=== PATIENT | male | born 2000 | race Caucasian/White ===

== ENCOUNTER 2021-07-04 09:50 | Inpatient (IN) | payer SELFPAY ==
[2021-07-04] VITALS (7 sets, daily range): BP systolic 137–168; BP diastolic 74–101; PULSE 72–93; RESP 14–19; TEMP 36.6–36.9; O2SAT 94–99; BMI 22.8; BMI 23.2
--- NOTE | 2021-07-04 11:03 | CT_ITS ---
WS: [id number] CT ABDOMEN PELVIS TECHNIQUE: Contrast-enhanced CT of the abdomen and pelvis with coronal and sagittal reformatted image s. CLINICAL INFORMATION: severe abd pain since yesterday with vomiting, possible ETOH COMPARISON: None. DLP: 1666.[address] scans at [facility] use at least one of these dose optimization techniques: automated e xposure control; mA and/or kV adjustment per patient size (includes targeted exams where dose is matc hed to clinical indication); or iterative reconstruction. FINDINGS: Hepatomegaly with diffuse fatty infiltration the liver. Normal spleen. Normal portal vein and splenic vein. Normal gallbladder. Lung bases are well aerated. Mild induration and inflammatory stranding ab out the head of the pancreas suspicious for pancreatitis. Small amount of induration about the body a nd tail of the pancreas with trace peripancreatic fluid. Splenic vein is patent. Correlation with pancreatic function studies. Normal pancreatic parenchymal enhancement. No drainable fluid collections. A few reactive lymph nodes in the ariadna hepatis and central mesentery. Adrenal gl ands are normal. Normal renal parenchymal enhancement. No hydronephrosis. Normal caliber abdominal ao rta. No evidence of high-grade small or large bowel obstruction. Mild constipation right colon. Normal adrian iber abdominal aorta. No abdominal lymphadenopathy. No free fluid in the pelvis. Fat-containing umbil ical hernia. Lung bases are well aerated. Grade 1 anterolisthesis L5 on S1 with bilateral pars defect s. CT/CT abdomen pelvis w con* [id number] IMPRESSION: 1. Hepatomegaly with diffuse fatty infiltration. 2. Mild edema within the head of the pancreas with subtle surrounding inflamma tory changes and trace peripancreatic fluid consistent with acute pancreatitis. Mild thickening of the adjacent duodenum. Recommend correlation with pancreati c enzymes 3. No drainable fluid collections. 4. Mild constipation right colon. 5. A few prominent lymph nodes along the ariadna hepatis and central mesentery l ikely reactive. 6. Grade 1 anterolisthesis L5 on S1 with bilateral pars defects. Notified JOHN Bean at 07/04/2021 11:52 AM.
--- NOTE | 2021-07-04 11:04 | W.ED.ABDPA2 ---
Documented by User: JOHN Bean 07/04/21 11:59 HPI - Abdominal Pain General: Chief Complaint: Abdominal Pain Stated Complaint: ABD PAINS N/V Time Seen by Provider: 07/04/21 10:57 History of Present Illness: HPI narrative: Complains about severe abdominal pain with nausea and vomiting since yesterday. Patient has been able to eat some. Patient also states he drinks vodka on a regular basis. Has no history of similar problems. Denies any fever chills. MD elicited complaint: abdominal pain Pertinent past history: other (EtOH abuse) Onset (ago): hour(s) Pain Consistency: constant Location: LUQ and RUQ Severity: severe Quality: stabbing and aching Relieving factors: nothing Associated Symptoms: Reports no associated symptoms, nausea and vomiting; Denies chills and fever(s) Review of Systems Const: Denies: fever(s), chills or body aches Eyes: Denies: change in vision or blurry vision ENMT: Denies: throat pain or nasal congestion Card: Denies: chest pain or dyspnea on exertion Resp: Denies: dyspnea, productive cough or non-productive cough GI: Reports: abdominal pain, nausea and vomiting : Denies: difficulty urinating Musc: Denies: extremity pain Skin/Breast: Denies: rash Neuro: Denies: headache(s) Psych: Denies: anxiety or depression Rajiv/Lymph: Denies: easy bruising Physical Exam Const: COMMON NORMALS: no acute distress, average body habitus and patient oriented x3 HENMT: COMMON NORMALS: normocephalic HEAD & SCALP: normal to inspection and normocephalic FACE & SINUS: normal facial exam Eye: COMMON NORMALS: conjunctivae normal GENERAL EYE: appearance normal, both eyes and all related structures CONJUNCTIVA: Yes conjunctivae normal Neck/C-Spine: COMMON NORMALS: no JVD Chest: COMMONS NORMALS: normal inspection of the chest Resp: COMMON NORMALS: normal respiratory effort and clear to auscultation bilaterally AUSCULTATION: clear to auscultation bilaterally Cardio: COMMON NORMALS: no JVD, regular rate and regular rhythm RATE: regular rate RHYTHM: regular rhythm GI: COMMON NORMALS: Normal to inspection, nondistended, normoactive bowel sounds present AUSCULTATION: Yes Hypoactive bowel sounds present PALPATION: Yes Tenderness to palpation present (GI) Details: LUQ and RUQ Extremity: COMMON NORMALS: normal to inspection and full ROM Neuro: COMMON NORMALS: patient oriented x3 Course Vital Signs: Vital signs: Vital Signs Temperature 98.2 F 07/04/21 10:32 Pulse Rate 89 07/04/21 10:32 Respiratory Rate 18 07/04/21 10:32 Blood Pressure 137/88 07/04/21 10:32 Pulse Oximetry 94 07/04/21 10:32 MDM - Abdominal Pain MDM Narrative: Medical decision making narrative: Patient presents today with abdominal pain and nausea and vomiting since yesterday. Patient relates history of drinking vodka pretty much on a daily basis along with his also who drinks daily. Patient states his abdominal pain is severe. CT report from radiologist reports pancreatitis and enlarged liver. Labs supportive of pancreatitis diagnosis. Patient was given morphine and Zofran and fluids to help with discomfort. Report given to Dr. Guzman and care transferred over to him. Lab Data: Labs: Lab Results 07/04/21 07/04/21 11:20 11:20 WBC 17.5 10^3/uL H 10 ^3/uL (4.0-10.0) RBC 4.66 10^6/uL 10^6 /uL (4.1-5.3) Hgb 14.9 g/dL g/dL (11.7-16.6) Hct 44.3 % % (42.0-52.0) MCV 95.1 fl H fl (80-94) MCH 32.0 pg pg (28.0-34.0) MCHC 33.6 g/dL g/dL (30.0-36.0) RDW 13.2 % % (12.1-15.1) Plt Count 229 10^3/cmm 10^3 /cmm (130-400) MPV 10.2 fL fL (7.4-10.4) Neut % (Auto) 86.2 % % Lymph % (Auto) 7.1 % % [place] % (Auto) 6.0 % % Eos % (Auto) 0.1 % % Baso % (Auto) 0.3 % % Neut # (Auto) 15.04 10^3/uL H 1 0^3/uL (1.8-7.7) Lymph # (Auto) 1.2 10^3/uL 10^3/ uL (0.8-4.8) [place] # (Auto) 1.1 10^3/uL H 10^ 3/uL (0.2-0.9) Eos # (Auto) 0.0 10^3/uL 10^3/ uL (0.0-0.8) Baso # (Auto) 0.1 10^3/uL 10^3/ uL (0.0-0.1) Nucleated RBC % (a uto) 0 % % Nucleated RBCs # 0.0 /100WBC /100W BC Sodium 138 mmol/L mmol/L (136-145) Potassium 3.7 mmol/L mmol/L (3.5-5.1) Chloride 96 mmol/L L mmol/ L (98-107) Carbon Dioxide 26 mmol/L mmol/L (22-29) Anion Gap 19.7 H (5-19) BUN 8 mg/dL mg/dL (6-20) Creatinine 0.7 mg/dL mg/dL (0.7-1.2) GFR Calculation 141.0 mL/min H mL /min (90-130) Glucose 143 mg/dL H mg/dL (65-115) Calculated Osmolal ity 287 mOsm/kg mOsm/ kg (285-295) Calcium 10.1 mg/dL mg/dL (8.5-10.5) Total Bilirubin 0.7 mg/dL mg/dL (0.15-1.2) AST 127 U/L H U/L (0-40) ALT 102 U/L H U/L (0-41) Alkaline Phosphata se 91 IU/L IU/L (40-130) Total Protein 7.9 g/dL g/dL (6.6-8.7) Albumin 5.2 g/dL g/dL (3.5-5.2) Globulin 2.7 g/dL g/dL (1.3-4.6) Lipase 557 U/L H U/L (13-60) Ethyl Alcohol < 10 mg/dL mg/dL (0-10) Discharge Plan Discharge Patient Disposition: Admitted As Inpatient Clinical Impression: Pancreatitis Qualifiers: Chronicity: acute Pancreatitis type: alcohol induced Acute pancreatitis complication: no infection or necrosis Qualified Code(s): K85.20 - Alcohol induced acute pancreatitis without necrosis or infection Condition: Stable Coding Level of Care Code ED Assisted Living Coordinator for Chg Fwd Exam Comprehensive Documented by User: Luiz Guzman MD 07/04/21 12:46 HPI - Abdominal Pain General: Chief Complaint: Abdominal Pain Stated Complaint: ABD PAINS N/V Time Seen by Provider: 07/04/21 10:57 Course Vital Signs: Vital signs: Vital Signs Temperature 98.2 F 07/04/21 10:32 Pulse Rate 89 07/04/21 10:32 Respiratory Rate 18 07/04/21 10:32 Blood Pressure 137/88 07/04/21 10:32 Pulse Oximetry 94 07/04/21 10:32 MDM - Abdominal Pain MDM Narrative: Medical decision making narrative: Addendum: Discussed case with midlevel provider and agree with management. Patient will be admitted to medical service. Remainder of lab work and imaging reviewed. Discussed with hospitalist and they agreed patient would benefit from admission. Patient admitted in stable condition. Further evaluation management per hospitalist team. Lab Data: Labs: Lab Results 07/04/21 07/04/21 11:20 11:20 WBC 17.5 10^3/uL H 10 ^3/uL (4.0-10.0) RBC 4.66 10^6/uL 10^6 /uL (4.1-5.3) Hgb 14.9 g/dL g/dL (11.7-16.6) Hct 44.3 % % (42.0-52.0) MCV 95.1 fl H fl (80-94) MCH 32.0 pg pg (28.0-34.0) MCHC 33.6 g/dL g/dL (30.0-36.0) RDW 13.2 % % (12.1-15.1) Plt Count 229 10^3/cmm 10^3 /cmm (130-400) MPV 10.2 fL fL (7.4-10.4) Neut % (Auto) 86.2 % % Lymph % (Auto) 7.1 % % [place] % (Auto) 6.0 % % Eos % (Auto) 0.1 % % Baso % (Auto) 0.3 % % Neut # (Auto) 15.04 10^3/uL H 1 0^3/uL (1.8-7.7) Lymph # (Auto) 1.2 10^3/uL 10^3/ uL (0.8-4.8) [place] # (Auto) 1.1 10^3/uL H 10^ 3/uL (0.2-0.9) Eos # (Auto) 0.0 10^3/uL 10^3/ uL (0.0-0.8) Baso # (Auto) 0.1 10^3/uL 10^3/ uL (0.0-0.1) Nucleated RBC % (a uto) 0 % % Nucleated RBCs # 0.0 /100WBC /100W BC Sodium 138 mmol/L mmol/L (136-145) Potassium 3.7 mmol/L mmol/L (3.5-5.1) Chloride 96 mmol/L L mmol/ L (98-107) Carbon Dioxide 26 mmol/L mmol/L (22-29) Anion Gap 19.7 H (5-19) BUN 8 mg/dL mg/dL (6-20) Creatinine 0.7 mg/dL mg/dL (0.7-1.2) GFR Calculation 141.0 mL/min H mL /min (90-130) Glucose 143 mg/dL H mg/dL (65-115) Calculated Osmolal ity 287 mOsm/kg mOsm/ kg (285-295) Calcium 10.1 mg/dL mg/dL (8.5-10.5) Total Bilirubin 0.7 mg/dL mg/dL (0.15-1.2) AST 127 U/L H U/L (0-40) ALT 102 U/L H U/L (0-41) Alkaline Phosphata se 91 IU/L IU/L (40-130) Total Protein 7.9 g/dL g/dL (6.6-8.7) Albumin 5.2 g/dL g/dL (3.5-5.2) Globulin 2.7 g/dL g/dL (1.3-4.6) Lipase 557 U/L H U/L (13-60) Ethyl Alcohol < 10 mg/dL mg/dL (0-10) Discharge Plan Discharge Patient Disposition: Admitted As Inpatient Clinical Impression: Pancreatitis Qualifiers: Chronicity: acute Pancreatitis type: alcohol induced Acute pancreatitis complication: no infection or necrosis Qualified Code(s): K85.20 - Alcohol induced acute pancreatitis without necrosis or infection Condition: Stable Coding Level of Care Code ED Assisted Living Coordinator for g Fwd Exam Comprehensive
[2021-07-04] MEDS: ondansetron 2 mg/ML SDV 2 mL 4 MG IVP (11:22)
[2021-07-04] MEDS: sodium chloride 0.9% 1,000 ML 999 ML IV (11:22)
[2021-07-04] MEDS: iohexol 300 mg/mL 100 mL Btl IV (11:28)
[2021-07-04 11:50] LABS: Basophils # 0.1 10^3/uL (0.0-0.1); Basophils % 0.3 %; Eosinophils % 0.1 %; Hematocrit 44.3 % (42.0-52.0); Hemoglobin 14.9 g/dL (11.7-16.6); Lymphocytes # 1.2 10^3/uL (0.8-4.8); Lymphocytes % 7.1 %; Mean Corpuscular HGB Conc 33.6 g/dL (30.0-36.0); Mean Corpuscular Volume 95.1 fl (80-94); Mean Platelet Volume 10.2 fL (7.4-10.4); Monocytes # 1.1 10^3/uL (0.2-0.9); Neutrophils # 15.04 10^3/uL (1.8-7.7); Neutrophils % 86.2 %; Nucleated Red Blood Cells % 0 %; Platelet Count 229 10^3/cmm (130-400); Red Blood Count 4.66 10^6/uL (4.1-5.3); Red Cell Distribution Width 13.2 % (12.1-15.1); White Blood Count 17.5 10^3/uL (4.0-10.0)
[2021-07-04 11:57] LABS: Alanine Aminotransferase 102 U/L (0-41); Albumin Level 5.2 g/dL (3.5-5.2); Alkaline Phosphatase 91 IU/L (40-130); Anion Gap 19.7 (5-19); Aspartate Amino Transferase 127 U/L (0-40); Blood Urea Nitrogen 8 mg/dL (6-20); Calcium 10.1 mg/dL (8.5-10.5); Carbon Dioxide 26 mmol/L (22-29); Chloride 96 mmol/L (98-107); Globulin 2.7 g/dL (1.3-4.6); Glucose 143 mg/dL (65-115); Osmolality Calculated 287 mOsm/kg (285-295); Potassium 3.7 mmol/L (3.5-5.1); Sodium 138 mmol/L (136-145); Total Bilirubin 0.7 mg/dL (0.15-1.2); Total Protein 7.9 g/dL (6.6-8.7)
[2021-07-04 12:07] LABS: Alcohol Level < 10 mg/dL (0-10)
[2021-07-04] MEDS: morphine 4 mg/mL SDV 1 mL IVP ×2 (12:13→14:10)
[2021-07-04 12:14] LABS: Lipase 557 U/L (13-60)
[2021-07-04 13:37] LABS: Add Urine Microscopic? YES; Bilirubin Urine Neg (Negative); Blood Urine Neg (Negative); Glucose Urine UA Norm (Normal); Ketones Urine 1+ (Negative); Leukocyte Esterase Urine Negative (Negative); Nitrate Urine Negative (Negative); Protein Urine Trace (Negative); Specific Gravity, Urine 1.005 (1.005-1.030); Urine Appearance Clear (CLEAR); Urine Color Yellow (Yellow); Urobilinogen Urine Norm (Negative); pH Urine 6.5 (5-7)
[2021-07-04 13:40] LABS: RBC Urine 0-4 /hpf (0-2)
[2021-07-04 13:41] LABS: Add Urine Culture? No; Bacteria Urine TRACE /hpf; Mucus Urine 1+ /hpf; Squamous Epithelial Cell Urine 0-4 /hpf (0-5); WBC Urine 0-4 /hpf (0-5)
[2021-07-04] MEDS: sodium chloride 0.9% 1,000 ML 125 ML IV (16:58)
[2021-07-04] MEDS: morphine 4 mg/mL SDV 1 mL 2 MG IVP ×2 (17:01→21:05)
--- NOTE | 2021-07-04 19:05 | PM.HP ---
Providers/Chief Complaint Admitting Physician: Robert Mcconnell Chief Complaint: ABD PAINS N/V History of Present Illness Ian Montana is a 20 year old male With a past medical history of alcohol abuse who presented to the hospital with mid epigastric pain, nausea and vomiting. Symptoms started 3 days prior. No prior history of pancreatitis. upon arrival to emergency room patient was noted to have elevated lipase and CT abdomen pelvis showing evidence of acute pancreatitis. Patient was started on IV fluids and admitted to the hospital. Review of Systems General: Reports: 10 or more systems reviewed and unremarkable except in HPI and below Medications/Allergies Home Medications Medication Instructions Recorded Confirmed Last Taken Type acetaminophen [Tylenol Ex Str 500 mg PO Q4H PRN 07/04/21 07/04/21 Unknown History Rapid Release] esomeprazole magnesium [Nexium] 20 mg PO DAILY PRN 07/04/21 07/04/21 Unknown History Allergies Allergy/AdvReac Type Severity Reaction Status Date / Time No Known Allergies Allergy Unverified 07/04/21 11:49 PFSH Acute PFSH: Social History (Updated 07/04/21 @ 19:07 by Robert Mcconnell MD) Smoking and tobacco status: current every day smoker Alcohol intake: current Substance/Drug Use: never Vitals/I&O/Wt Last Vital Signs Temp 98.4 F 07/04/21 16:03 Pulse 74 07/04/21 16:03 Resp 14 07/04/21 17:01 BP 146/89 07/04/21 16:03 Pulse Ox 99 07/04/21 17:01 07/04/21 07/04/21 07/04/21 06:59 14:59 22:59 Intake Total 1000 / 1000 Balance 1000 / 1000 Weight last 48 hrs Weight 82.1 kg Weight 80.739 kg Physical Exam Narrative: EXAM NARRATIVE: General-Alert awake, mild distress HEENT grossly unremarkable CVS - normal sinus rhythm Chest- nonlabored respiration Abdomen- midepigastric tenderness to palpation Extremities-no edema Data : 07/04/21 11:20 07/04/21 11:20 A&P Assessment and plan (1) Acute alcoholic pancreatitis: NPO IV fluids Pain control Repeat CMP /lipase in a.m. Status: Acute (2) Alcoholism: Alcohol withdrawal protocol Status: Acute Attestations Medical Necessity Statement*: may require over 2 midnight stay in hospital for evaluation treatment of acute pancreatitis Time Spent in Patient Care: Greater than 35 minutes (>than 50% of time spent in counselling and/or direct pt care on unit). Coding Level of Care Code Acute On Site Construction Superintendent for Kellen Rousseau Diagnoses Acute alcoholic pancreatitis K85.20 Alcoholism F10.20
[2021-07-05] VITALS (10 sets, daily range): BP systolic 150–174; BP diastolic 84–98; PULSE 72–107; RESP 16–20; TEMP 36.8–37.8; O2SAT 96–98
[2021-07-05] MEDS: sodium chloride 0.9% 1,000 ML 125 ML IV ×3 (01:27→18:26)
[2021-07-05] MEDS: morphine 4 mg/mL SDV 1 mL 2 MG IVP ×4 (01:40→21:49)
[2021-07-05] MEDS: ondansetron 2 mg/ML SDV 2 mL 4 MG IVP ×2 (01:40→21:46)
[2021-07-05 06:18] LABS: Basophils % 0.2 %; Hematocrit 43.1 % (42.0-52.0); Hemoglobin 14.5 g/dL (11.7-16.6); Lymphocytes # 0.9 10^3/uL (0.8-4.8); Lymphocytes % 4.3 %; Mean Corpuscular HGB Conc 33.6 g/dL (30.0-36.0); Mean Corpuscular Hemoglobin 31.9 pg (28.0-34.0); Mean Corpuscular Volume 94.9 fl (80-94); Mean Platelet Volume 10.4 fL (7.4-10.4); Monocytes # 1.2 10^3/uL (0.2-0.9); Monocytes % 6.1 %; Neutrophils # 17.64 10^3/uL (1.8-7.7); Nucleated Red Blood Cells % 0 %; Platelet Count 207 10^3/cmm (130-400); Red Blood Count 4.54 10^6/uL (4.1-5.3); Red Cell Distribution Width 13.2 % (12.1-15.1); White Blood Count 19.8 10^3/uL (4.0-10.0)
[2021-07-05 06:33] LABS: Alanine Aminotransferase 58 U/L (0-41); Albumin Level 4.2 g/dL (3.5-5.2); Alkaline Phosphatase 68 IU/L (40-130); Anion Gap 16.8 (5-19); Aspartate Amino Transferase 44 U/L (0-40); Blood Urea Nitrogen 7 mg/dL (6-20); Calcium 9.2 mg/dL (8.5-10.5); Carbon Dioxide 24 mmol/L (22-29); Chloride 100 mmol/L (98-107); Globulin 2.4 g/dL (1.3-4.6); Glomerular Filtration Rate 207.9 mL/min (90-130); Glucose 130 mg/dL (65-115); Magnesium 1.3 mg/dL (1.7-2.3); Osmolality Calculated 284 mOsm/kg (285-295); Potassium 3.8 mmol/L (3.5-5.1); Sodium 137 mmol/L (136-145); Total Bilirubin 0.6 mg/dL (0.15-1.2); Total Protein 6.6 g/dL (6.6-8.7)
[2021-07-05 07:09] LABS: Lipase 1279 U/L (13-60)
[2021-07-05] MEDS: thiamine 100 mg Tablet PO (09:23)
[2021-07-05] MEDS: multivitamin therapeutic Tablet 1 TAB PO (09:23)
[2021-07-05] MEDS: folic acid 1 mg Tablet PO (09:23)
[2021-07-05] MEDS: pantoprazole 40 mg SDV IVP (09:24)
--- NOTE | 2021-07-05 10:32 | PC.CHAP ---
Pastoral Care Encounter/Spiritual Assessment Type of Contact [x] Declined photographic double visit [] Patient/Family/Request visit [] Outpatient visit [] Follow-up visit [] Physician referral [] Code/Alert [] Routine visit [] Staff referral [] Actively dying [] Patient sleeping [] Family support [] [] Out of room [] Palliative care [] [] Receiving care in room [] Pre-surgical visit [] Trauma [] Long length of stay [] ICU visit [] Other: Relational/Emotional Strength [] Patient feels connected with others/family/visitors/staff [] Distress [] Loneliness/isolation [] Abandonment Spirituality of Patient [] Person of Radha [] Attends Shinto of their Radha [] Believes in Prayer [] Reads Bible or Alevism materials [] There are Spiritual issues to be addressed [employer] Sweeper Operator Interventions [] Prayer [] Active listening [] Non-anxious presence [] Spiritual/emotional support [] Crisis/trauma care [] Spiritual counseling [] Bereavement support [] Provided bereavement packet [] Provided Bible/devotional materials [] Provided toy/stuffed animal, coloring book to patient or family member [] Provided Communion [] Anointing/[place] [] Salvation [] Completed spiritual assessment [] Other: Impact on Illness or Injury [] Angry [] Fearful [] Anxious [] Often cries [] Exhaustion [] Unable to work [] Unable to attend religious [] Unable to walk/stand [] Unable to read [] Unable to drive [] Unable to eat/drink [] Unable to sleep [] Unable to be with family [] Patient intubated [] Other: Summary Declined photographic double visit Time spent with patient 5 mins
--- NOTE | 2021-07-05 14:42 | P.PN_ITS ---
Subjective Subjective: Interval history: 20 year old male With a past medical history of alcohol abuse who presented to the hospital with mid epigastric pain, nausea and vomiting. Symptoms started 3 days prior. No prior history of pancreatitis. upon arrival to emergency room patient was noted to have elevated lipase and CT abdomen pelvis showing evidence of acute pancreatitis. Patient was started on IV fluids and admitted to the hospital. Subjective: Temp of 100.0, isolated. No emesis today. Noted nausea. Has been using less IV narcotics. Medications: Reviewed: Yes Vitals/I&O/Wt Last Vital Signs Temp 98.3 F 07/05/21 20:00 Pulse 95 07/05/21 20:00 Resp 18 07/05/21 21:49 BP 154/93 07/05/21 20:00 Pulse Ox 96 07/05/21 20:00 07/05/21 07/05/21 07/05/21 06:59 14:59 22:59 Intake Total 999 991.667 / 939.829 7238 / 1990.667 Balance 999 991.667 / 506.018 3223 / 1990.667 Weight last 48 hrs Weight 82.1 kg Weight 80.739 kg Data : 07/05/21 05:50 07/05/21 05:50 A&P Assessment and plan (1) Acute alcoholic pancreatitis: Will start CLD- if pain or recurrnace of emesis will make NPO IVF Pain control CT abd/pelvis -Mild edema within the head of the pancreas with subtle surrounding inflammatory changes and trace peripancreatic fluid consistent with acute pancreatitis. Mild thickening of the adjacent duodenum. Low grade temp - if persistent will start Primixin. Leukocytosis increasing - possible due to alcholic hepatitis vs infectious process Repeat labs in AM Procalcitonin in am Status: Acute (2) Alcoholism: CIWA protocol Ativan PRN Status: Acute Attestations Medical Necessity Statement*: Require further hospitalization for management of pancreatitis Time Spent in Patient Care: Greater than 35 minutes (>than 50% of time spent in counselling and/or direct pt care on unit) . Coding Level of Care Code Acute Pet Training Instructor for Kellen Rousseau Diagnoses Acute alcoholic pancreatitis K85.20 Alcoholism F10.20
--- NOTE | 2021-07-05 21:13 | PC.NURSE ---
i reported high reps 20 to nurse
[2021-07-05] MEDS: magnesium sulfate premix 2 GM/50 ML PIGGYBACK IV (22:51)
[2021-07-06] VITALS (11 sets, daily range): BP systolic 134–148; BP diastolic 84–90; PULSE 90–108; RESP 16–18; TEMP 36.7–38.1; O2SAT 90–95
[2021-07-06] MEDS: sodium chloride 0.9% 1,000 ML 125 ML IV ×3 (01:36→18:22)
[2021-07-06] MEDS: morphine 4 mg/mL SDV 1 mL 2 MG IVP ×5 (01:53→20:31)
[2021-07-06 06:24] LABS: Basophils # 0.1 10^3/uL (0.0-0.1); Basophils % 0.3 %; Eosinophils % 0.1 %; Hematocrit 41.2 % (42.0-52.0); Hemoglobin 13.9 g/dL (11.7-16.6); Lymphocytes # 1.1 10^3/uL (0.8-4.8); Lymphocytes % 5.9 %; Mean Corpuscular HGB Conc 33.7 g/dL (30.0-36.0); Mean Corpuscular Hemoglobin 32.9 pg (28.0-34.0); Mean Corpuscular Volume 97.6 fl (80-94); Monocytes % 5.3 %; Neutrophils # 16.33 10^3/uL (1.8-7.7); Nucleated Red Blood Cells % 0 %; Platelet Count 158 10^3/cmm (130-400); Red Blood Count 4.22 10^6/uL (4.1-5.3); Red Cell Distribution Width 13.5 % (12.1-15.1); White Blood Count 18.5 10^3/uL (4.0-10.0)
[2021-07-06 06:46] LABS: Alanine Aminotransferase 32 U/L (0-41); Albumin Level 3.5 g/dL (3.5-5.2); Alkaline Phosphatase 60 IU/L (40-130); Aspartate Amino Transferase 24 U/L (0-40); Blood Urea Nitrogen 6 mg/dL (6-20); Calcium 8.6 mg/dL (8.5-10.5); Carbon Dioxide 25 mmol/L (22-29); Globulin 2.9 g/dL (1.3-4.6); Glomerular Filtration Rate 207.9 mL/min (90-130); Glucose 97 mg/dL (65-115); Magnesium 2.1 mg/dL (1.7-2.3); Total Bilirubin 0.5 mg/dL (0.15-1.2); Total Protein 6.4 g/dL (6.6-8.7)
[2021-07-06 06:50] LABS: Procalcitonin 0.65 ng/mL (0-0.5)
[2021-07-06 07:05] LABS: Anion Gap 14.8 (5-19); Chloride 99 mmol/L (98-107); Lipase 475 U/L (13-60); Osmolality Calculated 278 mOsm/kg (285-295); Potassium 3.8 mmol/L (3.5-5.1); Sodium 135 mmol/L (136-145)
[2021-07-06] MEDS: pantoprazole 40 mg SDV IVP (08:43)
[2021-07-06] MEDS: multivitamin therapeutic Tablet 1 TAB PO (08:43)
[2021-07-06] MEDS: folic acid 1 mg Tablet PO (08:43)
[2021-07-06] MEDS: thiamine 100 mg Tablet PO (08:43)
--- NOTE | 2021-07-06 12:11 | P.PN_ITS ---
Subjective Subjective: Interval history: Patient was seen and examined this morning, continues to complain of generalized abdominal pain, no vomiting, wants to try clear liquid diet. Medications: Reviewed: Yes Vitals/I&O/Wt Last Vital Signs Temp 99.9 F H 07/06/21 11:15 Pulse 108 H 07/06/21 11:15 Resp 16 07/06/21 11:15 BP 140/90 07/06/21 11:15 Pulse Ox 90 07/06/21 11:15 07/05/21 07/06/21 07/06/21 22:59 06:59 14:59 Intake Total 1000 1990.667 970 / 2961.667 1000 / 1000 Output Total 460 / 460 Balance 999.667 510 / 2501.667 1000 / 1000 Weight last 48 hrs Weight 82.1 kg Physical Exam Const: COMMON NORMALS: patient oriented x3 HENMT: COMMON NORMALS: normocephalic and atraumatic HEAD & SCALP: normocephalic and atraumatic Resp: COMMON NORMALS: clear to auscultation bilaterally AUSCULTATION: clear to auscultation bilaterally Cardio: COMMON NORMALS: regular rate, regular rhythm, S1 normal heart sound present, S2 normal heart sound present, No gallops present (Cardio), No murmurs present (Cardio), No rub (Cardio) and Peripheral pulses 2+ throughout RATE: regular rate RHYTHM: regular rhythm HEART SOUNDS: S1 normal heart sound present and S2 normal heart sound present PERIPHERAL PULSES: Peripheral pulses 2+ throughout GI: AUSCULTATION: Yes normoactive bowel sounds RECTAL EXAM: Yes deferred OTHER: Generalized abdominal tenderness present, no guarding no rigidity no rebound tenderness. Extremity: COMMON NORMALS: no clubbing, cyanosis or edema and no pedal edema Neuro: COMMON NORMALS: patient oriented x3 Data : 07/06/21 05:30 07/06/21 05:30 A&P Assessment and plan (1) Acute alcoholic pancreatitis: Tolerated CLD- Currently on G/I Soft diet IVF Pain control CT abd/pelvis -Mild edema within the head of the pancreas with subtle surrounding inflammatory changes and trace peripancreatic fluid consistent with acute pancreatitis. Mild thickening of the adjacent duodenum. Has been afebrile in last 24 hrs Leukocytosis is slowly improving Procalcitonin:0.65 Status: Acute (2) Alcoholism: CIWA protocol Ativan PRN Status: Acute Attestations Medical Necessity Statement*: In hospital for management of acute pancreatitis Coding Level of Care Code Acute Bookstore Clerk for Kellen Rousseau Diagnoses Acute alcoholic pancreatitis K85.20 Alcoholism F10.20
--- NOTE | 2021-07-06 19:03 | PC.NURSE ---
Report to Elen VAUGHN at this time.
--- NOTE | 2021-07-06 20:02 | PC.NURSE ---
i reported high pulse 108 and high temp 100.5 to nurse
[2021-07-07] VITALS (7 sets, daily range): BP systolic 120–148; BP diastolic 39–91; PULSE 74–111; RESP 16–18; TEMP 36.8–37.7; O2SAT 92–98
[2021-07-07] MEDS: morphine 4 mg/mL SDV 1 mL 2 MG IVP ×3 (00:24→09:54)
--- NOTE | 2021-07-07 00:32 | SUR.OPER ---
i reported high temp 99.9 and high pulse 111 to nurse
[2021-07-07] MEDS: sodium chloride 0.9% 1,000 ML 125 ML IV (01:36)
--- NOTE | 2021-07-07 04:26 | PC.NURSE ---
i reported high pulse 110 to nurse
[2021-07-07 05:29] LABS: Basophils % 0.2 %; Eosinophils # 0.1 10^3/uL (0.0-0.8); Eosinophils % 0.7 %; Hematocrit 39.4 % (42.0-52.0); Lymphocytes # 1.6 10^3/uL (0.8-4.8); Lymphocytes % 10.7 %; Mean Corpuscular Hemoglobin 32.4 pg (28.0-34.0); Mean Corpuscular Volume 98.3 fl (80-94); Mean Platelet Volume 10.7 fL (7.4-10.4); Monocytes # 1.3 10^3/uL (0.2-0.9); Neutrophils # 11.45 10^3/uL (1.8-7.7); Neutrophils % 78.8 %; Nucleated Red Blood Cells % 0 %; Platelet Count 159 10^3/cmm (130-400); Red Blood Count 4.01 10^6/uL (4.1-5.3); White Blood Count 14.5 10^3/uL (4.0-10.0)
[2021-07-07 06:04] LABS: Alanine Aminotransferase 22 U/L (0-41); Albumin Level 3.3 g/dL (3.5-5.2); Alkaline Phosphatase 65 IU/L (40-130); Anion Gap 14.8 (5-19); Aspartate Amino Transferase 19 U/L (0-40); Blood Urea Nitrogen 7 mg/dL (6-20); Calcium 8.8 mg/dL (8.5-10.5); Carbon Dioxide 24 mmol/L (22-29); Chloride 96 mmol/L (98-107); Globulin 3.4 g/dL (1.3-4.6); Glomerular Filtration Rate 207.9 mL/min (90-130); Glucose 99 mg/dL (65-115); Osmolality Calculated 270 mOsm/kg (285-295); Potassium 3.8 mmol/L (3.5-5.1); Sodium 131 mmol/L (136-145); Total Bilirubin 0.5 mg/dL (0.15-1.2); Total Protein 6.7 g/dL (6.6-8.7)
[2021-07-07] MEDS: folic acid 1 mg Tablet PO (08:33)
[2021-07-07] MEDS: pantoprazole 40 mg SDV IVP (08:33)
[2021-07-07] MEDS: thiamine 100 mg Tablet PO (08:33)
--- NOTE | 2021-07-07 09:33 | PM.DCS ---
Discharge Providers Date of Admission: 07/04/21 15:24 Date of Discharge: July 07, 2021 Attending Provider at Admission: Robert Mcconnell Attending Provider at Discharge: Sohail Serrato MD Diagnoses at Discharge Discharge Diagnosis (1) Acute alcoholic pancreatitis: Status: Resolved (2) Alcoholism: Status: Acute Reason for Visit Reason for Visit: ABD PAINS N/V Hospital Course Hospital Course 20 year old male With a past medical history of alcohol abuse who presented to the hospital with mid epigastric pain, nausea and vomiting. Symptoms started 3 days prior. No prior history of pancreatitis. upon arrival to emergency room patient was noted to have elevated lipase and CT abdomen pelvis showing evidence of acute pancreatitis. Patient was admitted for the management of acute pancreatitis likely secondary to alcohol abuse. He was kept on IV hydration , pain control , CIWA protocol, patient responded well to the above conservative medical management, at the time of discharge he was not having any nausea vomiting, he was tolerating regular diet well, abdominal pain had resolved. Leukocytosis which was likely secondary to dehydration was improving. proCalcitonin was normal, no antibiotics was used, as the concern for infection was low. Patient was discharged in stable condition to home. He was counseled regarding ill effects of alcohol abuse. Patient verbalized understanding. Physical Exam Const: COMMON NORMALS: patient oriented x3 HENMT: COMMON NORMALS: normocephalic and atraumatic HEAD & SCALP: normocephalic and atraumatic Resp: COMMON NORMALS: clear to auscultation bilaterally AUSCULTATION: clear to auscultation bilaterally Cardio: COMMON NORMALS: regular rate, regular rhythm, S1 normal heart sound present, S2 normal heart sound present, No gallops present (Cardio), No murmurs present (Cardio), No rub (Cardio) and Peripheral pulses 2+ throughout RATE: regular rate RHYTHM: regular rhythm HEART SOUNDS: S1 normal heart sound present and S2 normal heart sound present PERIPHERAL PULSES: Peripheral pulses 2+ throughout GI: AUSCULTATION: Yes normoactive bowel sounds RECTAL EXAM: Yes deferred Extremity: COMMON NORMALS: no clubbing, cyanosis or edema and no pedal edema Neuro: COMMON NORMALS: patient oriented x3 Discharge Data Data Completed and Pending: Completed Studies During Hospitalization Category Date Time Status CT abdomen pelvis w con* [id number] Stat Cat Scan 07/04/21 11:03 Completed Labs from last 24 hours 07/07/21 07/07/21 04:48 04:48 WBC 14.5 H RBC 4.01 L Hgb 13.0 Hct 39.4 L MCV 98.3 H MCH 32.4 MCHC 33.0 RDW 13.0 Plt Count 159 MPV 10.7 H Neut % (Auto) 78.8 Lymph % (Auto) 10.7 [place] % (Auto) 9.0 Eos % (Auto) 0.7 Baso % (Auto) 0.2 Neut # (Auto) 11.45 H Lymph # (Auto) 1.6 [place] # (Auto) 1.3 H Eos # (Auto) 0.1 Baso # (Auto) 0.0 Nucleated RBC % (a uto) 0 Nucleated RBCs # 0.0 Sodium 131 L Potassium 3.8 Chloride 96 L Carbon Dioxide 24 Anion Gap 14.8 BUN 7 Creatinine 0.5 L GFR Calculation 207.9 H Glucose 99 Calculated Osmolal ity 270 L Calcium 8.8 Total Bilirubin 0.5 AST 19 ALT 22 Alkaline Phosphata se 65 Total Protein 6.7 Albumin 3.3 L Globulin 3.4 Vitals: Last Vital Signs Temp 99.1 F 07/07/21 07:24 Pulse 93 07/07/21 07:24 Resp 16 07/07/21 07:24 BP 139/79 07/07/21 07:24 Pulse Ox 98 07/07/21 07:24 Discharge Plan Discharge Patient Disposition: Home Condition: Stable Prescriptions: Continued acetaminophen 500 mg Tablet 500 mg PO Q4H PRN (Reason: Pain) RF: 0 Nexium 20 mg Capsule,Delayed Release(Dr/Ec) 20 mg PO DAILY PRN (Reason: Heartburn) RF: 0 Discharge Orders: Discharge Order (Routine); Ordered 07/07/21 Ordered By: Sohail Serrato Discharge Diet: Regular Discharge Activity: Resume usual activity Patient Instructions: Pancreatitis (GEN), Alcohol Withdrawal (GEN), Opioid Safety Discharge Attestations Time Spent in Discharge Care*: less than 30 min Specific Discharge Activities: educating patient, educating and/or supporting family/caregiver, discussing with correctional casework specialist/social workers/dc planners, documenting/other paperwork and evaluating patient/reviewing data Status at Discharge: Cognitive status at discharge: cognitively intact, Behavioral status at discharge: cooperative, Functional status at discharge: independent ambulation Overall status at discharge: patient is back to baseline Quality Metrics Clinical Quality Measures During this hospital stay, did patient experience: None Coding Level of Care Code Acute Chg FW DC note Diagnoses Acute alcoholic pancreatitis K85.20 Alcoholism F10.20
--- NOTE | 2021-07-07 10:21 | PC.NURSE ---
IV removed intact at this time. Patient tolerated well. Reviewed patient discharge with patient at this time. Patient verbalized understanding of discharge instructions. Patient ambulated to private car.
--- NOTE | 2021-07-07 11:00 | PC.NURSE ---
Patient accidentally left his shirt, pants, and cell phone charge in the room when he was discharged. This nurse called patient and notified him that he left his belongings. Patient stated that he would pick them up later today.
== END 2021-07-07 11:00 | disposition home or self-care (01) | DRG 440 ==
LOC: ER 12:42 → MEDSURG 15:34
PROVIDERS: Nurse Practitioner Family; Admitting Provider Hospitalist; Emergency Provider Emergency Medicine; Visit Provider Internal Medicine
DX: K85.20 Alcohol induced acute pancreatitis without necrosis or infection (principal); F10.20 Alcohol dependence, uncomplicated; E86.0 Dehydration; F17.200 Nicotine dependence, unspecified, uncomplicated; R16.0 Hepatomegaly, not elsewhere classified; D72.829 Elevated white blood cell count, unspecified
CPT/HCPCS: 36415; 74177; 80053; 80307; 81001; 83690; 83735; 84145; 85025; 96365; 96375; 96376; 99285; C9113; J2270; J2405; J3475; J7030; Q9967

== ENCOUNTER 2023-04-17 20:40 | Emergency (ER) | payer SELFPAY ==
[2023-04-17 20:54] VITALS: BP 138/90; PULSE 113; RESP 18; TEMP 36.6; O2SAT 97; BMI 21.2
[2023-04-17] MEDS: HYDROcodone-acetaminophen 5-325 mg Tablet 1 TAB PO (22:39)
[2023-04-17] MEDS: amoxicillin-clav 875-125 mg Tablet 1 TAB PO (22:39)
[2023-04-17] MEDS: ketorolac 60 mg/2 mL INJ IM (22:41)
--- NOTE | 2023-04-18 00:47 | ED_ITS ---
HPI - Dental/Oral General: Chief complaint: Dental/Oral Stated complaint: tooth pain, inflamation Time Seen by Provider: 04/17/23 22:22 Source: patient Mode of arrival: ambulatory Limitations: no limitations History of Present Illness: Patient presents to the emergency department today for evaluation treatment of right lower jaw discomfort and dental infection. Patient reports issues recurrently with poor dentition and infections. He reports multiple broken teeth. He has been treated for infection in this area in the past but, has not seen a dentist for definitive care. Patient admits he has tried using straight sewing needles to treat dental abscess without resolution of infection. No fevers. Still eating and drinking without difficulty. He has only had sporadic OTC pain medication at home such as a single Advil or couple of Excedrin Migraine which have not provided him much pain relief. Review of Systems General: Reports: 10 or more systems reviewed and unremarkable except in HPI and below PFS ED PFSH: Medical History Acute alcoholic pancreatitis Alcoholism Pancreatitis Social History Smoking and tobacco status: current every day smoker Alcohol intake: current Substance/Drug Use: never Physical Exam Const: COMMON NORMALS: no acute distress, patient oriented x3 and alert HENMT: OTHER: Mucous membranes are moist. Patient does have erythema and swelling of the gumline along the right lower jaw without obvious facial swelling. Patient has multiple broken and cracked teeth with discoloration on both sides of the upper and lower jaw. Eye: COMMON NORMALS: Equal, round and reactive pupils present, EOMs intact bilaterally and conjunctivae normal CONJUNCTIVA: Yes conjunctivae normal PUPIL: Yes Equal, round and reactive pupils present Neck/C-Spine: COMMON NORMALS: no JVD Lymph: LYMPHATIC: no lymphadenopathy noted Resp: COMMON NORMALS: normal respiratory effort, No retractions and No use of accessory muscles Cardio: COMMON NORMALS: no JVD and regular rate RATE: regular rate : COMMON NORMALS: Yes no CVA tenderness BLADDER/KIDNEY EXAM: Yes no CVA tenderness Back/Pelvis: COMMON NORMALS: no CVA tenderness, thoracic and lumbar spine normal to inspection and thoraco-lumbar ROM normal Extremity: COMMON NORMALS: normal to inspection, full ROM and no pedal edema Neuro: COMMON NORMALS: patient oriented x3 SENSORIUM/ORIENTATION: Yes alert Skin: COMMON NORMALS: no rashes or lesions noted and turgor normal GENERAL SKIN EXAM: no rashes or lesions noted and turgor normal Course Vital Signs: Vital signs: Vital Signs Temperature 98 F 04/17/23 20:54 Pulse Rate 113 H 04/17/23 20:54 Respiratory Rate 18 04/17/23 20:54 Blood Pressure 138/90 04/17/23 20:54 Pulse Oximetry 97 04/17/23 20:54 MDM - Dental/Oral Medical Decision Making Patient was treated with oral antibiotics here in the emergency department as we ll as Toradol and a single [place]-patient has a significant other with him here who is driving. Patient is given 800 mg ibuprofen for pain and continued prescription for Augmentin to be picked up in the morning. He needs to see a dentist and we discussed definitive care due to the condition of his teeth where he will continue to have recurrent issues with infection. Patient was given strict return precautions for fever, inability to swallow or having difficulty breathing. Patient verbalized understanding and agreement to treatment plan. Differential Diagnosis Likely gingival abscess, dental caries, toothache, dental abscess and fracture of tooth Discharge Plan Discharge Patient Disposition: Home Clinical Impression: Dental abscess Condition: Stable Prescriptions: New amoxicillin-pot clavulanate 875-125 mg tablet 1 tab PO BID 10 Days Qty: 20 0RF ibuprofen 800 mg tablet 800 mg PO Q8H PRN (Reason: pain) Qty: 21 0RF No Action acetaminophen 500 mg Tablet 500 mg PO Q4H PRN (Reason: Pain) Nexium 20 mg Capsule,Delayed Release(Dr/Ec) 20 mg PO DAILY PRN (Reason: Heartburn) Discharge Orders: Discharge ED (Routine); Ordered 04/17/23 Ordered By: Nataliia Choi Discharge Diet: Usual diet Discharge Activity: Resume usual activity Patient Instructions: Opioid Safety, Pain Management Coding Level of Care Code ED Strike Operations Officer for Kellen Rousseau
== END 2023-04-17 22:51 | disposition home or self-care (01) ==
PROVIDERS: Emergency Provider Physician Assistant
DX: K04.7 Periapical abscess without sinus (principal); F17.210 Nicotine dependence, cigarettes, uncomplicated
CPT/HCPCS: 96372; 99284; J1885

== ENCOUNTER 2023-06-08 23:38 | Emergency (ER) | payer SELFPAY ==
--- NOTE | 2023-06-08 23:42 | W.ED.DENTAL ---
HPI - Dental/Oral General: Chief complaint: Dental/Oral Stated complaint: chewed on cheek Time Seen by Provider: 06/08/23 23:42 History of Present Illness: 22-year-old male patient comes in today for complaints of laceration to the inner left cheek. Patient reports that he awakened and noted a cut to the inner part of his left cheek. Patient denies any other concerns or problems. Patient appears nontoxic. Patient does smell of alcohol. Patient does admit to drinking alcohol. No other injuries are noted. Patient reported that he had went to sleep and took a nap and when he woke up he noticed a laceration. Patient denies history of seizure disorder. Patient does have a sister that has epilepsy. Patient denies any falls or injuries. Review of Systems General: Reports: 10 or more systems reviewed and unremarkable except in HPI and below ENMT: Reports: other (Laceration buccal cheek) [facility] ED PFSH: Medical History Acute alcoholic pancreatitis Alcoholism Pancreatitis Social History Smoking and tobacco status: current every day smoker Alcohol intake: current Substance/Drug Use: never Physical Exam Const: COMMON NORMALS: alert HENMT: MOUTH: Abnormal oral and palatal mucosa present (Laceration to the left buccal cheek) Neck/C-Spine: COMMON NORMALS: full ROM CERVICAL SPINE: No Cervical spine tenderness Chest: COMMONS NORMALS: normal inspection of the chest Resp: COMMON NORMALS: normal respiratory effort Cardio: COMMON NORMALS: regular rate and regular rhythm RATE: regular rate RHYTHM: regular rhythm GI: COMMON NORMALS: Soft to palpation and non-tender PALPATION: Yes Soft to palpation Extremity: COMMON NORMALS: normal to inspection Neuro: SENSORIUM/ORIENTATION: Yes alert Skin: COMMON NORMALS: turgor normal GENERAL SKIN EXAM: turgor normal Course Vital Signs: Vital signs: Vital Signs Temperature 97.6 F 06/08/23 23:49 Pulse Rate 109 H 06/08/23 23:49 Respiratory Rate 16 06/08/23 23:49 Blood Pressure 130/90 06/08/23 23:49 Pulse Oximetry 100 06/08/23 23:49 Oxygen Delivery Me thod Room Air 06/08/23 23:49 MDM - Dental/Oral Medical Decision Making 22-year-old male patient comes in today for complaints of injury to the left buccal cheek. On exam we note a 1 cm laceration to the cheek with subcutaneous tissue exposed. No significant redness or swelling is noted. Respirations are even lungs are clear to auscultation. No other injury is noted on exam. No spinal tenderness is noted. Patient does admit to drinking alcohol prior to injury. Injury occurred this afternoon. Differential diagnosis includes not limited to laceration cheek, substance use disorder, seizure activity. Reviewed exam with patient with recommendations for treatment of wound. No signs of severe injury was noted. Recommended good oral care with soft diet. Patient reported understanding and agreed to plan. No radiology studies performed this visit Discharge Plan Discharge Patient Disposition: Home Clinical Impression: Laceration of oral cavity Qualifiers: Encounter type: initial encounter Qualified Code(s): S01.512A - Laceration without foreign body of oral cavity, initial encounter Condition: Stable Prescriptions: No Action acetaminophen 500 mg Tablet 500 mg PO Q4H PRN (Reason: Pain) Nexium 20 mg Capsule,Delayed Release(Dr/Ec) 20 mg PO DAILY PRN (Reason: Heartburn) ibuprofen 800 mg tablet 800 mg PO Q8H PRN (Reason: pain) Qty: 21 0RF Discharge Orders: Discharge ED (Routine); Ordered 06/09/23 Ordered By: Erick Vasquez Discharge Diet: Soft Mechanical Discharge Activity: Resume usual activity Patient Instructions: Dental Laceration (ED) Activity Restrictions/Additional Instructions: Soft diet for the next 2 to 3 days. Good oral care. [place] teeth twice a day. Rinse mouth frequently after eating. Eat a mechanical soft diet to avoid particulate matter to get into the wound. Follow-up with primary care as needed. Return to ED for new concerns. Coding Level of Care Code ED Rn Wellness for Kellen Rousseau
[2023-06-08 23:49] VITALS: BP 130/90; PULSE 109; RESP 16; TEMP 36.4; O2SAT 100; BMI 21.8
== END 2023-06-09 00:10 | disposition home or self-care (01) ==
PROVIDERS: Emergency Provider Nurse Practitioner Family
DX: S01.512A Laceration without foreign body of oral cavity, initial encounter (principal); F17.210 Nicotine dependence, cigarettes, uncomplicated; X58.XXXA Exposure to other specified factors, initial encounter
CPT/HCPCS: 99281

== ENCOUNTER 2023-11-25 17:44 | Inpatient (IN) | payer SELFPAY ==
[2023-11-25] VITALS (7 sets, daily range): BP systolic 113–128; BP diastolic 74–86; PULSE 55–91; RESP 12–20; TEMP 36.4–36.8; O2SAT 94–100
--- NOTE | 2023-11-25 17:46 | CTR_ITS ---
PROCEDURE INFORMATION: Exam: CT Abdomen And Pelvis With Contrast Exam date and time: 11/25/2023 6:12 PM Age: 23 years old Clinical indication: Abdominal pain; Generalized; Additional info: Abdominal pain history of pancreatitis TECHNIQUE: Imaging protocol: Computed tomography of the abdomen and pelvis with contrast. Radiation optimization: All CT scans at this facility use at least one of these dose optimization techniques: automated exposure control; mA and/or kV adjustment per patient size (includes targeted exams where dose is matched to clinical indication); or iterative reconstruction. Contrast material: OMNI 350; Contrast volume: 100 ml; Contrast route: INTRAVENOUS (IV); COMPARISON: CT abdomen pelvis w con* [id number] 07/04/2021 11:26 AM RADIATION DOSE METRICS: Total DLP (mGy-cm): 369.91 FINDINGS: Liver: Hepatic steatosis. No mass. Gallbladder and bile ducts: Normal. No calcified stones. No ductal dilation. Pancreas: Peripancreatic edema. No ductal dilation. Spleen: Normal. No splenomegaly. Adrenal glands: Normal. No mass. Kidneys and ureters: Normal. No hydronephrosis. Stomach and bowel: Unremarkable. No obstruction. No mucosal thickening. Appendix: No evidence of appendicitis. Intraperitoneal space: Unremarkable. No free air. No significant fluid collection. Vasculature: Unremarkable. No abdominal aortic aneurysm. Lymph nodes: Prominent peripancreatic lymph nodes, likely reactive to the adjacent inflammation. Urinary bladder: Unremarkable as visualized. Reproductive: Unremarkable as visualized. Bones/joints: No acute fracture. Soft tissues: Unremarkable. CT/CT abdomen pelvis w con* [id number] IMPRESSION: 1. Findings consistent with acute pancreatitis. 2. Hepatic steatosis.
--- NOTE | 2023-11-25 17:48 | W.ED.ABDPA2 ---
HPI - Abdominal Pain General: Chief Complaint: Abdominal Pain Stated Complaint: ABD Pain Time Seen by Provider: 11/25/23 17:45 History of Present Illness: 23-year-old male presents emergency department via EMS personnel with complaints of epigastric abdominal pain that started last night and has continued to progressively worsen throughout the day today. He states his pain is a 9 out of 10 constant and sharp in nature. He states that he drank approximately 10 shots of vodka last night and approximately 4 to 5 hours later started having epigastric pain. He has had 2 episodes of nausea and vomiting. Patient states he does have a history of pancreatitis. EMS personnel advised that they provided him 80 mcg of fentanyl and 4 mg of Zofran. Associated Symptoms: Reports nausea and vomiting Review of Systems General: Reports: 10 or more systems reviewed and unremarkable except in HPI and below GI: Reports: abdominal pain, nausea and vomiting [facility] ED PFSH: Medical History Acute alcoholic pancreatitis Alcoholism Pancreatitis Social History Smoking and tobacco/nicotine status: current every day tobacco/nicotine user Alcohol intake: current Substance/Drug Use: never Physical Exam Narrative: EXAM NARRATIVE: Constitutional: the patient appears well nourished and of normal development. Vital signs as documented. No acute distress at present. Alert and oriented-to person, place, time and situation. Head, eyes, ears, nose, mouth, throat: Normocephalic, atraumatic. Pupils-equal, round, reactive to light. No scleral icterus. Normal-appearing external ears. Normal appearing nasal turbinates, no drainage. No obvious oral lesions, posterior oropharynx without erythema or exudates. Neck: Supple, trachea is midline, no lymphadenopathy, no jugular venous distension, thyromegaly, or carotid bruits. Carotid upstrokes are brisk bilaterally. Lungs: clear to auscultation to all lung joshi. Symmetrical rise and fall of chest, no obvious signs of increased work of breathing at present. Cardiac: Regular rate and rhythm, positive S1, S2. No murmurs, rubs or gallops that I can appreciate Abdomen: Soft, slightly tender to palpation to the epigastric region. normal active bowel sounds to all quadrants. No palpable masses, no organomegaly and abdominal bruits. Extremities: 2+ pulses in the upper extremities that are equal bilaterally, 2+ pulses in the lower extremities that are equal bilaterally. Non-edematous. Moves all extremities well, sensation to all extremities are noted. Skin: Warm, dry, intact. Course Reevaluation(s): Reevaluation #1: Patient states she continues to feel 7 out of 10 pain that is epigastric area. I have provided the patient IV fluid as well as discussed the patient's elevated lipase level the CT scan findings and his elevated lactic acid level. I will order the patient morphine and Zofran for his nausea and pain control and have advised the patient that I have contacted the hospitalist physician for admission for additional evaluation treatment and care. Time: 18:59 Vital Signs: Vital signs: Vital Signs Temperature 98.3 F 11/25/23 17:48 Pulse Rate 91 11/25/23 17:48 Respiratory Rate 20 H 11/25/23 17:48 Blood Pressure 113/74 11/25/23 17:48 Pulse Oximetry 95 11/25/23 17:48 Oxygen Delivery Me thod Room Air 11/25/23 17:48 MDM - Abdominal Pain Medical Decision Making Physical exam completed and documented, I will obtain laboratory evaluation to include a CBC, CMP, lipase, urinalysis, and a CT scan of the patient's abdomen pelvis to evaluate for possible differential diagnosis of bowel obstruction, incarcerated hernia, abdominal wall strain, abdominal wall hematoma, constipation, Colitis, acute appendicitis, diverticulitis, pancreatitis, pseudocyst. 18:56 we have placed a call to the hospital service to request admission of the patient for additional evaluation treatment and care. Medical Records I reviewed the patient's medical records. Lab Data I reviewed the patient's lab results. 11/25/23 17:31 11/25/23 17:31 Labs/Radiology: Radiology Impressions Abdomen/Pelvis CT 11/25/23 17:46 IMPRESSION: 1. Findings consistent with acute pancreatitis. 2. Hepatic steatosis. Laboratory Results WBC 7.38 10^3/uL (3.29-11.43) 11/25/23 17:31 RBC 4.45 10^6/uL (3.85-5.65) 11/25/23 17:31 Hgb 14.50 g/dL (11.27-16.99) 11/25/23 17:31 Hct 43.6 % (37-53) 11/25/23 17:31 MCV 98.0 fl (82-101) 11/25/23 17:31 MCH 32.6 pg (27-33) 11/25/23 17: MCHC 33.3 g/dL (30-55) 11/25/23 17: RDW 14.0 % (12.1-15.1) 11/25/23 17:31 Plt Count 194 10^3/cmm (157-399) 11/25/23 17:31 MPV 9.2 fL (7.4-10.4) 11/25/23 17:31 Neut % (Auto) 40.3 % 11/25/23 17:31 Lymph % (Auto) 46.3 % 11/25/23 17:31 [place] % (Auto) 11.9 % 11/25/23 17: Eos % (Auto) 0.7 % 11/25/23 17:31 Baso % (Auto) 0.7 % 11/25/23 17: Neut # (Auto) 2.97 10^3/uL (1.8-7.7) 11/25/23 17:31 Lymph # (Auto) 3.4 10^3/uL (0.8-4.8) 11/25/23 17:31 [place] # (Auto) 0.9 10^3/uL (0.2-0.9) 11/25/23 17: Eos # (Auto) 0.1 10^3/uL (0.0-0.8) 11/25/23 17: Baso # (Auto) 0.1 10^3/uL (0.0-0.1) 11/25/23 17: Nucleated RBC % (auto) 0 % 11/25/23 17: Nucleated RBCs # 0.0 /100WBC 11/25/23 17: PT 13.50 SECONDS (12.1-14.9) 11/25/23 17:31 INR 1.00 (0.8-1.2) 11/25/23 17:31 Sodium 142 mmol/L (136-145) 11/25/23 17: Potassium 4.4 mmol/L (3.5-5.1) 11/25/23 17:31 Chloride 98 mmol/L (98-107) 11/25/23 17:31 Carbon Dioxide 25 mmol/L (22-29) 11/25/23 17:31 Anion Gap 23.4 (5-19) H 11/25/23 17:31 BUN 18 mg/dL (6-20) 11/25/23 17:31 Creatinine 0.8 mg/dL (0.7-1.2) 11/25/23 17:31 GFR Calculation 117.8 mL/min (90-130) 11/25/23 17:31 Glucose 130 mg/dL (65-115) H 11/25/23 17:31 POC Glucose 130 mg/dL (70-110) H 11/25/23 17:52 Calculated Osmolality 298 mOsm/kg (285-295) H 11/25/23 17:31 Lactic Acid 4.8 mmol/L (0.5-2.2) H* 11/25/23 17:31 Calcium 9.8 mg/dL (8.5-10.5) 11/25/23 17:31 Total Bilirubin 0.5 mg/dL (0.15-1.2) 11/25/23 17:31 AST 203 U/L (0-40) H 11/25/23 17:31 ALT 115 U/L (0-41) H 11/25/23 17:31 Alkaline Phosphatase 93 U/L (40-130) 11/25/23 17:31 Total Protein 8.3 g/dL (6.6-8.7) 11/25/23 17:31 Albumin 5.0 g/dL (3.5-5.2) 11/25/23 17:31 Globulin 3.3 g/dL (1.3-4.6) 11/25/23 17:31 Lipase 345 U/L (13-60) H 11/25/23 17:31 Procalcitonin 0.17 ng/mL (0-0.5) 11/25/23 17:31 Ethyl Alcohol 198 mg/dL (0-10) H 11/25/23 17:31 All radiology interpretation(s) finalized by discharge Discharge Plan Discharge Patient Disposition: Admitted As Inpatient Clinical Impression: Pancreatitis Qualifiers: Chronicity: acute Pancreatitis type: alcohol induced Acute pancreatitis complication: unspecified Qualified Code(s): K85.20 - Alcohol induced acute pancreatitis without necrosis or infection Abdominal pain Qualifiers: Abdominal location: epigastric Qualified Code(s): R10.13 - Epigastric pain Alcohol intoxication Qualifiers: Complication of substance-induced condition: uncomplicated Qualified Code(s): F10.920 - Alcohol use, unspecified with intoxication, uncomplicated Condition: Stable Coding Level of Care Code ED Sewing Supervisor for Kellen Rousseau
[2023-11-25 17:56] LABS: Glucose Point of Care 130 mg/dL (70-110)
[2023-11-25 17:57] LABS: Basophils # 0.1 10^3/uL (0.0-0.1); Basophils % 0.7 %; Eosinophils # 0.1 10^3/uL (0.0-0.8); Eosinophils % 0.7 %; Hematocrit 43.6 % (37-53); Lymphocytes # 3.4 10^3/uL (0.8-4.8); Lymphocytes % 46.3 %; Mean Corpuscular HGB Conc 33.3 g/dL (30-55); Mean Corpuscular Hemoglobin 32.6 pg (27-33); Mean Platelet Volume 9.2 fL (7.4-10.4); Monocytes # 0.9 10^3/uL (0.2-0.9); Monocytes % 11.9 %; Neutrophils # 2.97 10^3/uL (1.8-7.7); Neutrophils % 40.3 %; Nucleated Red Blood Cells % 0 %; Platelet Count 194 10^3/cmm (157-399); Red Blood Count 4.45 10^6/uL (3.85-5.65); White Blood Count 7.38 10^3/uL (3.29-11.43)
[2023-11-25] MEDS: iohexol 350 mg/mL 500 mL Btl (per mL) IV (18:13)
[2023-11-25 18:20] LABS: Alanine Aminotransferase 115 U/L (0-41); Alcohol Level 198 mg/dL (0-10); Alkaline Phosphatase 93 U/L (40-130); Anion Gap 23.4 (5-19); Aspartate Amino Transferase 203 U/L (0-40); Blood Urea Nitrogen 18 mg/dL (6-20); Calcium 9.8 mg/dL (8.5-10.5); Carbon Dioxide 25 mmol/L (22-29); Chloride 98 mmol/L (98-107); Creatinine Clr Calc Pharmacy 161.8617; Globulin 3.3 g/dL (1.3-4.6); Glomerular Filtration Rate 117.8 mL/min (90-130); Glucose 130 mg/dL (65-115); Osmolality Calculated 298 mOsm/kg (285-295); Potassium 4.4 mmol/L (3.5-5.1); Sodium 142 mmol/L (136-145); Total Bilirubin 0.5 mg/dL (0.15-1.2); Total Protein 8.3 g/dL (6.6-8.7)
[2023-11-25 18:27] LABS: Procalcitonin 0.17 ng/mL (0-0.5)
[2023-11-25 18:29] LABS: Lipase 345 U/L (13-60)
[2023-11-25 18:31] LABS: Lactic Sepsis W/Reflex 4.8 mmol/L (0.5-2.2)
[2023-11-25] MEDS: sodium chloride 0.9% 1,000 ML 999 ML IV ×2 (18:50→19:14)
[2023-11-25] MEDS: ondansetron 2 mg/ML SDV 2 mL 4 MG IVP ×2 (19:09→22:24)
--- NOTE | 2023-11-25 19:09 | PM.HP ---
Providers/Chief Complaint Chief Complaint: ABD Pain History of Present Illness Ian Montana is a 23 year old male who present to the hospital for abdominal pain. Patient is stating that he had suffered from pancreatitis in the past secondary to alcohol abuse. Usually he drinks 10-12 shots of vodka, smokes cigarettes, no use of marijuana, start experiencing abdominal pain nausea and vomiting on 11/23, today presented because of worsening of symptoms, he is afebrile no signs of necrotic pancreatitis, lipase is high consistent with pancreatitis Lactic acid is high as well secondary to dehydration Liver enzymes are normal Alk phosphatase normal He was admitted to [facility] however when I requested triglyceride level came back high as well 585 Lipase 345 Alcohol level 198 Review of Systems Const: Denies: fever(s) Eyes: Denies: change in vision ENMT: Denies: throat pain Card: Denies: chest pain Resp: Reports: dyspnea GI: Reports: abdominal pain, nausea and vomiting : Denies: flank pain Musc: Denies: neck pain Medications/Allergies Home Medications Medication Instructions Recorded Confirmed Last Taken Type No Known Home Medications 11/25/23 11/25/23 Unknown History Allergies Allergy/AdvReac Type Severity Reaction Status Date / Time No Known Allergies Allergy Verified 06/08/23 23:52 PFSH Acute PFSH: Medical History Alcoholism Acute alcoholic pancreatitis Pancreatitis Social History Smoking and tobacco/nicotine status: current every day tobacco/nicotine user Alcohol intake: current Substance/Drug Use: never Vitals/I&O/Wt Last Vital Signs Temp 98.3 F 11/25/23 17:48 Pulse 91 11/25/23 17:48 Resp 20 H 11/25/23 17:48 BP 113/74 11/25/23 17:48 Pulse Ox 95 11/25/23 17:48 O2 Del Method Room Air 11/25/23 17:48 Weight last 48 hrs Weight 79.379 kg Physical Exam Narrative: Clinical signs of dehydration Awake alert No sign of peritonitis Abdomen soft on superficial palpation Nonfocal neuroexam GCS 18 Hemodynamically stable Currently on room air S1, S2 Data 11/25/23 17:31 11/25/23 17:31 A&P Assessment and plan (1) Alcohol intoxication: Qualifiers: Complication of substance-induced condition: uncomplicated Qualified Code(s): F10.920 - Alcohol use, unspecified with intoxication, uncomplicated (2) Pancreatitis: Qualifiers: Acute pancreatitis complication: unspecified Chronicity: acute Pancreatitis type: alcohol induced Qualified Code(s): K85.20 - Alcohol induced acute pancreatitis without necrosis or infection (3) Abdominal pain: Qualifiers: Abdominal location: epigastric Qualified Code(s): R10.13 - Epigastric pain (4) Hypertriglyceridemia: (5) Abnormal transaminases: Plan Acute pancreatitis Triglycerides are 585, this was not done fasting, Recheck triglyceride if still above 500 then he will need insulin drip, may need admission to to ICU otherwise now I will treat him with opioids, on MedSurg Start D5 LR with opioids N.p.o. for now Patient drinks on daily basis Continue CIWA protocol Alcohol her 98 Patient endorsing history of DTs but never got intubated Full code N.p.o. Attestations Medical Necessity Statement*: More than 2 midnights anticipated Diagnoses Alcohol intoxication F10.920 Complication of substance-induced condition: uncomplicated Pancreatitis K85.20 Acute pancreatitis complication: unspecified Chronicity: acute Pancreatitis type: alcohol induced Abdominal pain R10.13 Abdominal location: epigastric Hypertriglyceridemia E78.1 Abnormal transaminases R74.8
[2023-11-25] MEDS: morphine 4 mg/mL SDV 1 mL IVP (19:10)
[2023-11-25 19:42] LABS: Reflex Lactate Order REFLEX LACTIC ORDERD
[2023-11-25 20:01] LABS: Triglycerides 585 mg/dL (0-150)
[2023-11-25 20:53] LABS: Lactic Acid level (Lactate) 3.4 mmol/L (0.5-2.2)
[2023-11-25 20:58] LABS: LDL Cholesterol Direct 54 mg/dL (0-100)
[2023-11-25 21:28] LABS: Estmated Average Glucose 103; Hemoglobin A1C 5.2 % (4.0-6.0)
[2023-11-25] MEDS: HYDROmorphone 1 mg/mL INJ 1 mL 0.400000000000000022 MG IVP (22:25)
[2023-11-25] MEDS: enoxaparin 40 mg/0.4 mL Syringe SUBCUT (22:27)
[2023-11-25] MEDS: dextrose 5%-lactated ringers 1,000 ML 100 ML IV (22:28)
[2023-11-25] MEDS: fenofibrate 145 mg Tablet PO (23:04)
[2023-11-25] MEDS: LORazepam 2 mg/mL INJ 10 mL MDV IVP (23:06)
[2023-11-25 23:10] LABS: Triglycerides 368 mg/dL (0-150)
[2023-11-26] VITALS (14 sets, daily range): BP systolic 118–160; BP diastolic 68–104; PULSE 65–80; RESP 12–17; TEMP 36.7–37.1; O2SAT 94–98
[2023-11-26 00:54] LABS: Thyroid Stimulating Hormone 0.51 uIU/mL (0.27-4.20)
[2023-11-26 02:02] LABS: Vitamin B12 799 pg/mL (232-1245)
[2023-11-26] MEDS: HYDROmorphone 1 mg/mL INJ 1 mL 0.400000000000000022 MG IVP ×3 (02:50→10:49)
[2023-11-26] MEDS: ondansetron 2 mg/ML SDV 2 mL 4 MG IVP ×3 (04:03→18:01)
--- NOTE | 2023-11-26 04:10 | PC.NURSE ---
Patient states that he cannot afford any medications. Patient asked if he would like to have social worker talk to him to see if they could assist. Patient states I'll think about it.
[2023-11-26 04:16] LABS: Add Urine Microscopic? NO; Charge for UA Resulting for Rev
[2023-11-26 04:27] LABS: Bilirubin Urine Neg (Negative); Blood Urine Neg (Negative); Glucose Urine UA Norm (Normal); Ketones Urine Negative (Negative); Leukocyte Esterase Urine Negative (Negative); Nitrate Urine Negative (Negative); Protein Urine Neg (Negative); Specific Gravity, Urine 1.015 (1.005-1.030); Urine Appearance Clear (CLEAR); Urine Color Light yellow (Yellow); Urobilinogen Urine Neg (Negative); pH Urine 5 (5-7)
[2023-11-26 04:32] LABS: Basophils % 0.2 %; Eosinophils % 0.1 %; Hematocrit 35.6 % (37-53); Lymphocytes # 1.2 10^3/uL (0.8-4.8); Lymphocytes % 9.7 %; Mean Corpuscular HGB Conc 33.4 g/dL (30-55); Mean Corpuscular Hemoglobin 32.5 pg (27-33); Mean Corpuscular Volume 97.3 fl (82-101); Mean Platelet Volume 9.6 fL (7.4-10.4); Monocytes # 1.3 10^3/uL (0.2-0.9); Monocytes % 10.4 %; Neutrophils # 10.05 10^3/uL (1.8-7.7); Neutrophils % 79.2 %; Nucleated Red Blood Cells % 0 %; Platelet Count 141 10^3/cmm (157-399); Red Blood Count 3.66 10^6/uL (3.85-5.65); Red Cell Distribution Width 13.4 % (12.1-15.1); White Blood Count 12.69 10^3/uL (3.29-11.43)
[2023-11-26 04:52] LABS: Alanine Aminotransferase 84 U/L (0-41); Albumin Level 4.4 g/dL (3.5-5.2); Alkaline Phosphatase 74 U/L (40-130); Anion Gap 19.1 (5-19); Aspartate Amino Transferase 127 U/L (0-40); Blood Urea Nitrogen 12 mg/dL (6-20); Calcium 8.8 mg/dL (8.5-10.5); Carbon Dioxide 23 mmol/L (22-29); Chloride 103 mmol/L (98-107); Creatinine Clr Calc Pharmacy 178.3458; Globulin 2.7 g/dL (1.3-4.6); Glomerular Filtration Rate 164.2 mL/min (90-130); Glucose 132 mg/dL (65-115); Magnesium 1.6 mg/dL (1.7-2.3); Osmolality Calculated 294 mOsm/kg (285-295); Phosphorus 4.3 mg/dL (2.5-4.5); Potassium 4.1 mmol/L (3.5-5.1); Sodium 141 mmol/L (136-145); Total Bilirubin 0.7 mg/dL (0.15-1.2); Total Protein 7.1 g/dL (6.6-8.7)
--- NOTE | 2023-11-26 06:30 | PC.NURSE ---
Tammy Montana (patient's ): [phone]
--- NOTE | 2023-11-26 07:04 | PC.NURSE ---
Patient unable to have PRN Zofran until 10 am. Patient is vomiting. One time order of Reglan received from Dr. Kruse.
[2023-11-26] MEDS: metoclopramide 5 mg/mL SDV 2 mL IVP ×3 (07:19→22:40)
[2023-11-26] MEDS: dextrose 5%-lactated ringers 1,000 ML 100 ML IV ×2 (07:55→18:00)
[2023-11-26] MEDS: pantoprazole 40 mg SDV IVP ×2 (07:56→18:00)
[2023-11-26] MEDS: thiamine 100 mg Tablet PO (07:56)
[2023-11-26] MEDS: multivitamin therapeutic Tablet 1 TAB PO (07:56)
[2023-11-26] MEDS: fenofibrate 145 mg Tablet PO (07:56)
[2023-11-26] MEDS: folic acid 1 mg Tablet PO (07:56)
[2023-11-26] MEDS: magnesium sulfate premix 1 GM/100 ML PIGGYBACK IV (09:22)
[2023-11-26] MEDS: nicotine 2 mg Gum 4 MG BUCCAL (09:22)
[2023-11-26 09:26] LABS: Lactic Sepsis W/Reflex 0.9 mmol/L (0.5-2.2)
[2023-11-26 10:29] LABS: Triglycerides 152 mg/dL (0-150)
[2023-11-26] MEDS: HYDROmorphone 1 mg/mL INJ 1 mL IVP ×3 (13:52→22:40)
[2023-11-26] MEDS: LORazepam 2 mg Tablet PO (13:52)
--- NOTE | 2023-11-26 15:13 | P.PN_ITS ---
Vitals/I&O/Wt Last Vital Signs Temp 98.7 F 11/26/23 12:00 Pulse 75 11/26/23 12:00 Resp 16 11/26/23 13:52 BP 150/89 11/26/23 12:00 Pulse Ox 95 11/26/23 12:00 O2 Del Method Room Air 11/26/23 08:26 11/26/23 11/26/23 11/26/23 06:59 14:59 22:59 Intake Total 1045 / 1045 Output Total 325 / 325 950 / 950 Balance -325 / 1074.6 95 / 95 Weight last 48 hrs Weight 66.678 kg Weight 66.996 kg Weight 66.95 kg Weight 79.379 kg Physical Exam 2 Const: COMMON NORMALS: no acute distress and patient oriented x3 Resp: COMMON NORMALS: normal respiratory effort, No retractions, No use of accessory muscles and clear to auscultation bilaterally AUSCULTATION: clear to auscultation bilaterally Cardio: COMMON NORMALS: regular rate, regular rhythm, S1 normal heart sound present and S2 normal heart sound present RATE: regular rate RHYTHM: r egular rhythm HEART SOUNDS: S1 normal heart sound present and S2 normal heart sound present GI: OTHER: Abdomen soft, distended, good bowel sounds, no guarding, no rebound, no rigidity does have diffuse tenderness to examination Extremity: COMMON NORMALS: no pedal edema Neuro: COMMON NORMALS: patient oriented x3 Psych: COMMON NORMALS: mental status grossly normal Data 11/26/23 04:08 11/26/23 04:08 A&P Assessment and plan (1) Alcohol intoxication: Qualifiers: Complication of substance-induced condition: uncomplicated Qualified Code(s): F10.920 - Alcohol use, unspecified with intoxication, uncomplicated (2) Pancreatitis: Qualifiers: Acute pancreatitis complication: unspecified Chronicity: acute P ancreatitis type: alcohol induced Qualified Code(s): K85.20 - Alcohol induced acute pancreatitis without necrosis or infection (3) Abdominal pain: Qualifiers: Abdominal location: epigastric Qualified Code(s): R10.13 - Epigastric pain (4) Hypertriglyceridemia: (5) Abnormal transaminases: Plan Acute pancreatitis Triglycerides are 585, this was not done fasting, Recheck triglyceride if still above 500, recheck triglyceride levels 152 Start D5 LR with opioids N.p.o. for now ? Dilaudid for pain control, Zofran, Reglan for nausea Patient drinks on daily basis Continue CIWA protocol Alcohol her 98 Patient endorsing history of DTs but never got intubated Full code N.p.o. Attestations 2 Medical Necessity Statement*: Patient requires hospitalization for acute pancreatitis, hypertriglyceridemia, abdominal pain, alcohol withdrawal Diagnoses Alcohol intoxication F10.920 Complication of substance-induced condition: uncomplicated Pancreatitis K85.20 Acute pancreatitis complication: unspecified Chronicity: acute Pancreatitis type: alcohol induced Abdominal pain R10.13 Abdominal location: epigastric Hypertriglyceridemia E78.1 Abnormal transaminases R74.8
--- NOTE | 2023-11-26 18:35 | PC.NURSE ---
SHIFT SUMMARY Patient was vomiting when this nurse arrived this morning. Dr. Gardner notified and an order for reglan given. Patient had lots of complaints of pain and was visibly restless. Dr. Gardner increased pain medication. With changed medications on board, patient is resting more comfortably this afternoon. Good output. Currently resting in bed.
[2023-11-26] MEDS: enoxaparin 40 mg/0.4 mL Syringe SUBCUT (20:23)
[2023-11-26 22:48] LABS: Triglycerides 81 mg/dL (0-150)
[2023-11-27] VITALS (11 sets, daily range): BP systolic 122–147; BP diastolic 70–89; PULSE 67–92; RESP 12–18; TEMP 36.6–37.3; O2SAT 93–99
[2023-11-27] MEDS: dextrose 5%-lactated ringers 1,000 ML 100 ML IV ×2 (04:21→15:22)
[2023-11-27] MEDS: HYDROmorphone 1 mg/mL INJ 1 mL IVP ×4 (04:49→19:56)
[2023-11-27] MEDS: fenofibrate 145 mg Tablet PO (09:20)
[2023-11-27] MEDS: thiamine 100 mg Tablet PO (09:20)
[2023-11-27] MEDS: multivitamin therapeutic Tablet 1 TAB PO (09:20)
[2023-11-27] MEDS: folic acid 1 mg Tablet PO (09:20)
[2023-11-27 09:36] LABS: Basophils % 0.2 %; Eosinophils % 0.5 %; Hematocrit 36.4 % (37-53); Lymphocytes # 1.6 10^3/uL (0.8-4.8); Lymphocytes % 18.8 %; Mean Corpuscular HGB Conc 32.7 g/dL (30-55); Mean Corpuscular Hemoglobin 32.7 pg (27-33); Mean Platelet Volume 10.4 fL (7.4-10.4); Monocytes % 11.3 %; Neutrophils # 5.85 10^3/uL (1.8-7.7); Nucleated Red Blood Cells % 0 %; Platelet Count 105 10^3/cmm (157-399); Red Blood Count 3.64 10^6/uL (3.85-5.65); Red Cell Distribution Width 13.2 % (12.1-15.1); White Blood Count 8.49 10^3/uL (3.29-11.43)
[2023-11-27] MEDS: pantoprazole 40 mg SDV IVP ×2 (09:48→17:46)
[2023-11-27 09:58] LABS: Alanine Aminotransferase 47 U/L (0-41); Albumin Level 3.7 g/dL (3.5-5.2); Alkaline Phosphatase 63 U/L (40-130); Aspartate Amino Transferase 69 U/L (0-40); Blood Urea Nitrogen 4 mg/dL (6-20); C Reactive Protein 49.4 mg/L (0.0-4.9); Calcium 9.1 mg/dL (8.5-10.5); Carbon Dioxide 29 mmol/L (22-29); Chloride 98 mmol/L (98-107); Creatinine Clr Calc Pharmacy 212.9992; Globulin 2.7 g/dL (1.3-4.6); Glomerular Filtration Rate 202.6 mL/min (90-130); Glucose 102 mg/dL (65-115); Lipase 200 U/L (13-60); Osmolality Calculated 277 mOsm/kg (285-295); Sodium 135 mmol/L (136-145); Total Bilirubin 0.8 mg/dL (0.15-1.2); Total Protein 6.4 g/dL (6.6-8.7)
[2023-11-27 10:01] LABS: Triglycerides 56 mg/dL (0-150)
--- NOTE | 2023-11-27 15:38 | P.PN_ITS ---
Subjective 2 Subjective: Patient was seen this morning, his nausea has resolved he had a bowel movement, his abdominal pain also has improved Vitals/I&O/Wt Last Vital Signs Temp 98.0 F 11/27/23 11:52 Pulse 78 11/27/23 11:52 Resp 12 11/27/23 13:50 BP 126/76 11/27/23 07:50 Pulse Ox 94 11/27/23 11:52 O2 Del Method Room Air 11/27/23 11:52 11/27/23 11/27/23 11/27/23 06:59 14:59 22:59 Intake Total 1000 / 3045 1240 / 1240 Balance 1000 / 1695 1240 / 1240 Weight last 48 hrs Weight 66.678 kg Weight 66.996 kg Weight 66.95 kg Weight 79.379 kg Physical Exam 2 Const: COMMON NORMALS: no acute distress and patient oriented x3 Resp: COMMON NORMALS: normal respiratory effort, No retractions, No use of accessory muscles and clear to auscultation bilaterally AUSCULTATION: clear to auscultation bilaterally Cardio: COMMON NORMALS: regular rate, regular rhythm, S1 normal heart sound present and S2 normal heart sound present RATE: regular rate RHYTHM: r egular rhythm HEART SOUNDS: S1 normal heart sound present and S2 normal heart sound present GI: COMMON NORMALS: Normal to inspection, nondistended, normoactive bowel sounds present and non-tender Extremity: COMMON NORMALS: no pedal edema Neuro: COMMON NORMALS: patient oriented x3 Psych: COMMON NORMALS: mental status grossly normal Data 11/27/23 09:23 11/27/23 09:23 A&P Assessment and plan (1) Alcohol intoxication: Qualifiers: Complication of substance-induced condition: uncomplicated Qualified Code(s): F10.920 - Alcohol use, unspecified with intoxication, uncomplicated (2) Pancreatitis: Qualifiers: Acute pancreatitis complication: unspecified Chronicity: acute P ancreatitis type: alcohol induced Qualified Code(s): K85.20 - Alcohol induced acute pancreatitis without necrosis or infection (3) Abdominal pain: Qualifiers: Abdominal location: epigastric Qualified Code(s): R10.13 - Epigastric pain (4) Hypertriglyceridemia: (5) Abnormal transaminases: Plan Acute pancreatitis Triglycerides are 585, this was not done fasting, Recheck triglyceride if still above 500, recheck triglyceride levels 56 Start D5 LR with opioids Advance to clear liquid diet ? Dilaudid for pain control, Zofran, Reglan for nausea Patient drinks on daily basis Continue CIWA protocol Alcohol her 98 Patient endorsing history of DTs but never got intubated Full code Plan for today advance diet, continue pain control continue nausea control continue IV fluids, monitor CIWA scores Attestations 2 Medical Necessity Statement*: Patient requires hospitalization for acute pancreatitis, alcohol withdrawal Diagnoses Alcohol intoxication F10.920 Complication of substance-induced condition: uncomplicated Pancreatitis K85.20 Acute pancreatitis complication: unspecified Chronicity: acute Pancreatitis type: alcohol induced Abdominal pain R10.13 Abdominal location: epigastric Hypertriglyceridemia E78.1 Abnormal transaminases R74.8
[2023-11-27 17:34] LABS: Lipase 199 U/L (13-60)
[2023-11-27] MEDS: enoxaparin 40 mg/0.4 mL Syringe SUBCUT (20:04)
[2023-11-27 22:22] LABS: Triglycerides 59 mg/dL (0-150)
[2023-11-28] VITALS: BP 125/78; PULSE 84; RESP 17; TEMP 36.7; O2SAT 98
[2023-11-28 01:19] VITALS: RESP 18; O2SAT 98
[2023-11-28] MEDS: dextrose 5%-lactated ringers 1,000 ML 100 ML IV (01:19)
[2023-11-28] MEDS: HYDROmorphone 1 mg/mL INJ 1 mL IVP (01:19)
[2023-11-28 04:00] VITALS: BP 135/81; PULSE 79; RESP 16; TEMP 36.4; O2SAT 97
[2023-11-28 05:29] LABS: Basophils % 0.4 %; Eosinophils # 0.1 10^3/uL (0.0-0.8); Eosinophils % 1.6 %; Hematocrit 33.9 % (37-53); Lymphocytes # 1.4 10^3/uL (0.8-4.8); Lymphocytes % 24.3 %; Mean Corpuscular HGB Conc 33.3 g/dL (30-55); Mean Corpuscular Hemoglobin 32.9 pg (27-33); Mean Corpuscular Volume 98.8 fl (82-101); Mean Platelet Volume 10.7 fL (7.4-10.4); Monocytes # 0.6 10^3/uL (0.2-0.9); Neutrophils # 3.52 10^3/uL (1.8-7.7); Neutrophils % 62.5 %; Nucleated Red Blood Cells % 0 %; Platelet Count 95 10^3/cmm (157-399); Red Blood Count 3.43 10^6/uL (3.85-5.65); Red Cell Distribution Width 13.1 % (12.1-15.1); White Blood Count 5.63 10^3/uL (3.29-11.43)
[2023-11-28 05:47] LABS: Alanine Aminotransferase 39 U/L (0-41); Albumin Level 3.8 g/dL (3.5-5.2); Alkaline Phosphatase 61 U/L (40-130); Anion Gap 13.6 (5-19); Aspartate Amino Transferase 48 U/L (0-40); Blood Urea Nitrogen 3 mg/dL (6-20); Calcium 9.2 mg/dL (8.5-10.5); Carbon Dioxide 28 mmol/L (22-29); Chloride 96 mmol/L (98-107); Creatinine Clr Calc Pharmacy 214.8839; Glomerular Filtration Rate 202.6 mL/min (90-130); Glucose 113 mg/dL (65-115); Magnesium 1.7 mg/dL (1.7-2.3); Osmolality Calculated 275 mOsm/kg (285-295); Phosphorus 2.5 mg/dL (2.5-4.5); Potassium 3.6 mmol/L (3.5-5.1); Sodium 134 mmol/L (136-145); Total Bilirubin 0.8 mg/dL (0.15-1.2); Total Protein 6.8 g/dL (6.6-8.7)
[2023-11-28 07:09] VITALS: BP 126/78; PULSE 83; RESP 17; TEMP 36.8; O2SAT 98
[2023-11-28 08:16] VITALS: PULSE 86; RESP 16; O2SAT 99
[2023-11-28] MEDS: thiamine 100 mg Tablet PO (09:30)
[2023-11-28] MEDS: multivitamin therapeutic Tablet 1 TAB PO (09:30)
[2023-11-28] MEDS: fenofibrate 145 mg Tablet PO (09:30)
[2023-11-28] MEDS: folic acid 1 mg Tablet PO (09:30)
--- NOTE | 2023-11-28 11:05 | PM.DCS ---
Discharge Providers Date of Admission: 11/25/23 19:53 Date of Discharge: November 28, 2023 Attending Provider at Admission: Riley Kruse MD Attending Provider at Discharge: Stevo Gardner MD Diagnoses at Discharge Discharge Diagnosis (1) Alcohol intoxication: Status: Acute Qualifiers: Complication of substance-induced condition: uncomplicated Qualified Code(s): F10.920 - Alcohol use, unspecified with intoxication, uncomplicated (2) Pancreatitis: Status: Acute Qualifiers: Acute pancreatitis complication: unspecified Chronicity: acute Pancreatitis type: alcohol induced Qualified Code(s): K85.20 - Alcohol induced acute pancreatitis without necrosis or infection (3) Abdominal pain: Status: Acute Qualifiers: Abdominal location: epigastric Qualified Code(s): R10.13 - Epigastric pain (4) Hypertriglyceridemia: Status: Acute (5) Abnormal transaminases: Status: Acute Reason for Visit Reason for Visit: ABD Pain Hospital Course Hospital Course Ian Montana is a 23 year old male who present to the hospital for abdominal pain. Patient is stating that he had suffered from pancreatitis in the past secondary to alcohol abuse. Usually he drinks 10-12 shots of vodka, smokes cigarettes, no use of marijuana, start experiencing abdominal pain nausea and vomiting on 11/23, today presented because of worsening of symptoms, he is afebrile no signs of necrotic pancreatitis, lipase is high consistent with pancreatitis Lactic acid is high as well secondary to dehydration Liver enzymes are normal Alk phosphatase normal He was admitted to [facility] however when I requested triglyceride level came back high as well 585 Lipase 345 Alcohol level 198 Patient was admitted to [facility] for acute pancreatitis, secondary to alcoholism, received bowel rest, IV fluids, pain control, nausea control overall clinically improved, diet was advanced, tolerated well, passing gas having bowel movements, abdominal pain resolved will be discharged on instructions to drink plenty of electrolyte balanced fluids, slowly advance diet due to GI soft diet for the next 2 weeks, follow-up with primary care provider in 1 week For history of alcoholism, he is followed for alcohol withdrawal, no significant withdrawal symptoms, patient was advised strongly to abstain from alcohol consumption The patient did have evidence of hypertriglyceridemia and during his hospitalization triglycerides over 585, with a family history of premature CAD, I have discharged him on fenofibrate, follow-up with primary care provider as outpatient Physical Exam Const: COMMON NORMALS: no acute distress and patient oriented x3 Resp: COMMON NORMALS: normal respiratory effort, No retractions, No use of accessory muscles and clear to auscultation bilaterally AUSCULTATION: clear to auscultation bilaterally Cardio: COMMON NORMALS: regular rate, regular rhythm, S1 normal heart sound present and S2 normal heart sound present RATE: regular rate RHYTHM: regular rhythm HEART SOUNDS: S1 normal heart sound present and S2 normal heart sound present GI: COMMON NORMALS: Normal to inspection, nondistended, normoactive bowel sounds present and non-tender Extremity: COMMON NORMALS: no pedal edema Neuro: COMMON NORMALS: patient oriented x3 Psych: COMMON NORMALS: mental status grossly normal Discharge Data Studies Completed and Pending Completed Studies During Hospitalization Category Date Time Status CT abdomen pelvis w con* [id number] Stat Cat Scan 11/25/23 17:46 Completed Pending at discharge Category Date Time Status Complete Blood Count w/Auto AM LABS Lab 11/29/23 04:00 Ordered Complete Blood Count w/Auto AM LABS Lab 11/30/23 04:00 Ordered Comprehensive Metabolic Panel AM LABS Lab 11/29/23 04:00 Ordered Comprehensive Metabolic Panel AM LABS Lab 11/30/23 04:00 Ordered Lipase AM LABS Lab 11/28/23 16:14 Ordered Lipase AM LABS Lab 11/29/23 16:14 Ordered Magnesium AM LABS Lab 11/29/23 04:00 Ordered Magnesium AM LABS Lab 11/30/23 04:00 Ordered Phosphorus AM LABS Lab 11/29/23 04:00 Ordered Phosphorus AM LABS Lab 11/30/23 04:00 Ordered Radiology Impressions Abdomen/Pelvis CT 11/25/23 17:46 IMPRESSION: 1. Findings consistent with acute pancreatitis. 2. Hepatic steatosis. Laboratory Results WBC 5.63 10^3/uL (3.29-11.43) 11/28/23 04:35 RBC 3.43 10^6/uL (3.85-5.65) L 11/28/23 04:35 Hgb 11.30 g/dL (11.27-16.99) 11/28/23 04:35 Hct 33.9 % (37-53) L 11/28/23 04:35 MCV 98.8 fl (82-101) 11/28/23 04:35 MCH 32.9 pg (27-33) 11/28/23 04:35 MCHC 33.3 g/dL (30-55) 11/28/23 04:35 RDW 13.1 % (12.1-15.1) 11/28/23 04:35 Plt Count 95 10^3/cmm (157-399) L 11/28/23 04:35 MPV 10.7 fL (7.4-10.4) H 11/28/23 04:35 Neut % (Auto) 62.5 % 11/28/23 04:35 Lymph % (Auto) 24.3 % 11/28/23 04:35 [place] % (Auto) 11.0 % 11/28/23 04:35 Eos % (Auto) 1.6 % 11/28/23 04:35 Baso % (Auto) 0.4 % 11/28/23 04:35 Neut # (Auto) 3.52 10^3/uL (1.8-7.7) 11/28/23 04:35 Lymph # (Auto) 1.4 10^3/uL (0.8-4.8) 11/28/23 04:35 [place] # (Auto) 0.6 10^3/uL (0.2-0.9) 11/28/23 04:35 Eos # (Auto) 0.1 10^3/uL (0.0-0.8) 11/28/23 04:35 Baso # (Auto) 0.0 10^3/uL (0.0-0.1) 11/28/23 04:35 Nucleated RBC % (auto) 0 % 11/28/23 04:35 Nucleated RBCs # 0.0 /100WBC 11/28/23 04:35 PT 13.50 SECONDS (12.1-14.9) 11/25/23 17:31 INR 1.00 (0.8-1.2) 11/25/23 17:31 Sodium 134 mmol/L (136-145) L 11/28/23 04:35 Potassium 3.6 mmol/L (3.5-5.1) 11/28/23 04:35 Chloride 96 mmol/L (98-107) L 11/28/23 04:35 Carbon Dioxide 28 mmol/L (22-29) 11/28/23 04:35 Anion Gap 13.6 (5-19) 11/28/23 04:35 BUN 3 mg/dL (6-20) L 11/28/23 04:35 Creatinine 0.5 mg/dL (0.7-1.2) L 11/28/23 04:35 GFR Calculation 202.6 mL/min (90-130) H 11/28/23 04:35 Glucose 113 mg/dL (65-115) 11/28/23 04:35 POC Glucose 130 mg/dL (70-110) H 11/25/23 17:52 Estimat Average Glucose 103 11/25/23 17:31 Hemoglobin A1c 5.2 % (4.0-6.0) 11/25/23 17:31 Calculated Osmolality 275 mOsm/kg (285-295) L 11/28/23 04:35 Lactic Acid 0.9 mmol/L (0.5-2.2) 11/26/23 09:00 Lactic Acid (Sepsis) 3.4 mmol/L (0.5-2.2) H 11/25/23 20:27 Calcium 9.2 mg/dL (8.5-10.5) 11/28/23 04:35 Phosphorus 2.5 mg/dL (2.5-4.5) 11/28/23 04:35 Magnesium 1.7 mg/dL (1.7-2.3) 11/28/23 04:35 Total Bilirubin 0.8 mg/dL (0.15-1.2) 11/28/23 04:35 AST 48 U/L (0-40) H 11/28/23 04:35 ALT 39 U/L (0-41) 11/28/23 04:35 Alkaline Phosphatase 61 U/L (40-130) 11/28/23 04:35 C-Reactive Protein 49.4 mg/L (0.0-4.9) H 11/27/23 09:23 Total Protein 6.8 g/dL (6.6-8.7) 11/28/23 04:35 Albumin 3.8 g/dL (3.5-5.2) 11/28/23 04:35 Globulin 3.0 g/dL (1.3-4.6) 11/28/23 04:35 Triglycerides 59 mg/dL (0-150) 11/27/23 21:57 LDL Cholesterol Direct 54 mg/dL (0-100) 11/25/23 17:31 Lipase 199 U/L (13-60) H 11/27/23 09:23 Lipase 200 U/L (13-60) H 11/27/23 09:23 Vitamin B12 799 pg/mL (232-1245) 11/25/23 17:31 Procalcitonin 0.17 ng/mL (0-0.5) 11/25/23 17:31 TSH 0.51 uIU/mL (0.27-4.20) 11/25/23 17:31 Urine Color Light yellow (Yellow) 11/26/23 04:05 Urine Appearance Clear (CLEAR) 11/26/23 04:05 Urine pH 5 (5-7) 11/26/23 04:05 Ur Specific [place] 1.015 (1.005-1.030) 11/26/23 04:05 Urine Protein Neg (Negative) 11/26/23 04:05 Urine Glucose (UA) Norm (Normal) 11/26/23 04:05 Urine Ketones Negative (Negative) 11/26/23 04:05 Urine Blood Neg (Negative) 11/26/23 04:05 Urine Nitrate Negative (Negative) 11/26/23 04:05 Urine Bilirubin Neg (Negative) 11/26/23 04:05 Urine Urobilinogen Neg mg/dL (Negative) 11/26/23 04:05 Ur Leukocyte Esterase Negative (Negative) 11/26/23 04:05 Ethyl Alcohol 198 mg/dL (0-10) H 11/25/23 17:31 Vitals Last Vital Signs Temp 98.3 F 11/28/23 07:09 Pulse 86 11/28/23 08:16 Resp 16 11/28/23 08:16 BP 126/78 11/28/23 07:09 Pulse Ox 99 11/28/23 08:16 O2 Del Method Room Air 11/28/23 08:16 Discharge Plan Discharge Patient Disposition: Home Condition: Stable Prescriptions: New thiamine mononitrate (vit B1) [Vitamin B-1 (mononitrate)] 100 mg Tablet 100 mg PO DAILY 30 Days Qty: 30 0RF multivitamin with folic acid [Thera] 400 mcg Tablet 1 tab PO DAILY 30 Days Qty: 30 0RF fenofibrate nanocrystallized 145 mg Tablet 145 mg PO DAILY 30 Days Qty: 30 0RF No Action No Known Home Medications Discharge Orders: Discharge Order (Routine); Ordered 11/28/23 Ordered By: Stevo Gardner Referrals: Pato Jameson MD [Referring] - 12/09/23 2:00 pm Pato Hernandez MD [Physician] - (alcohol abuse) Discharge Diet: GI Soft Discharge Activity: Resume usual activity Patient Instructions: Pancreatitis (DC), Cirrhosis of the Liver (ED), Abuse of Alcohol (ED), Alcohol Withdrawal (DC), GI (Gastrointestinal) Soft Diet (DC), Opioid Safety Activity Restrictions/Additional Instructions: - Please abstain from alcohol consumption ? Please adhere to a GI soft diet ? Follow-up with primary care provider for hypertriglyceridemia -Hydrate well, drink plenty of electrolyte balanced fluids -Follow-up with primary care Discharge Attestations Time Spent in Discharge Care*: greater than 30 min Status at Discharge: Cognitive status at discharge: cognitively intact, Behavioral status at discharge: cooperative, Quality Metrics Clinical Quality Measures [ No reported AMI, CVA or VTE this stay] Coding Level of Care Code 08339 Total time (in minutes) for Discharge: 45 Diagnoses Alcohol intoxication F10.920 Complication of substance-induced condition: uncomplicated Pancreatitis K85.20 Acute pancreatitis complication: unspecified Chronicity: acute Pancreatitis type: alcohol induced Abdominal pain R10.13 Abdominal location: epigastric Hypertriglyceridemia E78.1 Abnormal transaminases R74.8
== END 2023-11-28 12:05 | disposition home or self-care (01) | DRG 440 ==
LOC: ER 18:57 → MEDSURG 19:53
PROVIDERS: Admitting Provider Internal Medicine; Emergency Provider Internal Medicine; Visit Provider Family Medicine
DX: K85.20 Alcohol induced acute pancreatitis without necrosis or infection (principal); F10.229 Alcohol dependence with intoxication, unspecified; Y90.6 Blood alcohol level of 120-199 mg/100 ml; E78.1 Pure hyperglyceridemia; Z72.0 Tobacco use; E86.0 Dehydration; Z82.49 Family history of ischemic heart disease and other diseases of the circulatory system
CPT/HCPCS: 36415; 36416; 74177; 80048; 80053; 80307; 81003; 82607; 82962; 83036; 83605; 83690; 83721; 83735; 84100; 84145; 84443; 84478; 85025; 85610; 86140; 96372; 96374; 96375; 99285; C9113; J1170; J1650; J2060; J2270; J2405; J2765; J3411; J3475; J7030; J7121; Q9967

== ENCOUNTER 2024-02-16 02:27 | Emergency (ER) | payer SELFPAY ==
[2024-02-16 02:38] VITALS: BP 148/109; PULSE 90; RESP 16; TEMP 36.4; O2SAT 97; BMI 22.4
[2024-02-16] MEDS: oxyCODONE-APAP 5-325 mg Tablet 2 TAB PO (03:22)
[2024-02-16] MEDS: amoxicillin-clav 875-125 mg Tablet 1 TAB PO (03:22)
[2024-02-16] MEDS: dexamethasone 4 mg Tablet 10 MG PO (03:22)
[2024-02-16 03:35] VITALS: BP 148/109; PULSE 90; RESP 16; TEMP 36.4; O2SAT 97
--- NOTE | 2024-02-16 04:03 | W.ED.DENTAL ---
HPI - Dental/Oral General: Chief complaint: Dental/Oral Stated complaint: Tooth pain Time Seen by Provider: 02/16/24 03:10 History of Present Illness: 23-year-old male complaining of left sided mainly upper molar pain for the last 4 days. He has not had a fever. No vomiting. Some swelling. He has taken acetaminophen without relief. No drainage. Associated symptoms: Denies ear or mastoid pain or fever(s) Review of Systems Const: Denies: fever(s) or chills Eyes: Denies: change in vision ENMT: Reports: dental pain; Denies: throat pain, swelling of lips/tongue, ear or mastoid pain, ear discharge or nasal discharge Card: Denies: chest pain GI: Denies: vomiting PFSH ED PFSH: Medical History Alcoholism Acute alcoholic pancreatitis Pancreatitis Social History Smoking and tobacco/nicotine status: current every day tobacco/nicotine user Alcohol intake: current Substance/Drug Use: never Physical Exam HENMT: COMMON NORMALS: normocephalic, atraumatic and Normal external nose present HEAD & SCALP: normocephalic and atraumatic FACE & SINUS: edema (Minimal left) NOSE: Normal external nose present MOUTH: tongue normal TEETH & GINGIVA: Yes abnormal tooth and associated gingiva (Left upper molar gingival swelling, beefy erythema.) and Yes poor dentition THROAT: posterior oropharynx normal Chest: CHEST: Yes Symmetrical chest wall rise Resp: COMMON NORMALS: normal respiratory effort, No use of accessory muscles and clear to auscultation bilaterally AUSCULTATION: clear to auscultation bilaterally Cardio: COMMON NORMALS: regular rate and regular rhythm RATE: regular rate RHYTHM: regular rhythm Course Vital Signs: Vital signs: Vital Signs Temperature 97.5 F L 02/16/24 03:35 Pulse Rate 90 02/16/24 03:35 Respiratory Rate 16 02/16/24 03:35 Blood Pressure 148/109 02/16/24 03:35 Pulse Oximetry 97 02/16/24 03:35 Oxygen Delivery Me thod Room Air 02/16/24 02:38 MDM - Dental/Oral Medical Decision Making Dental abscess of left upper molar. Antibiotics, anti-inflammatories, dental follow-up. No radiology studies performed this visit Discharge Plan Discharge Patient Disposition: Home Clinical Impression: Dental abscess Condition: Stable Prescriptions: New amoxicillin-pot clavulanate 875-125 mg tablet 1 tab PO BID Qty: 20 0RF ketorolac 10 mg tablet 10 mg PO TID PRN (Reason: pain) Qty: 10 0RF Discharge Orders: Discharge ED (Routine); Ordered 02/16/24 Ordered By: Reynaldo Kauffman Patient Instructions: Dental Abscess (ED), Opioid Safety, Pain Management Activity Restrictions/Additional Instructions: Seek dental care as soon as possible Stand Alone Forms: Work/School Release Coding Level of Care Code ED Lead Mobile Developer for Kellen Rousseau
== END 2024-02-16 03:36 | disposition home or self-care (01) ==
PROVIDERS: Emergency Provider Emergency Medicine
DX: K04.7 Periapical abscess without sinus (principal); Z72.0 Tobacco use
CPT/HCPCS: 99284; J1885; J8540

== ENCOUNTER 2024-03-15 10:32 | Emergency (ER) | payer MEDICAID, SELFPAY ==
--- NOTE | 2024-03-15 10:53 | XRR_ITS ---
PROCEDURE INFORMATION: Exam: XR Right Shoulder Exam date and time: 03/15/2024 10:57 AM Age: 23 years old Clinical indication: Pain; Shoulder; Right TECHNIQUE: Imaging protocol: Radiologic exam of the right shoulder. Views: 2 or more views. COMPARISON: No relevant prior studies available. FINDINGS: Bones/joints: Normal. Soft tissues: Normal. XR/XR shoulder RT min 2V* [id number] IMPRESSION: No acute findings.
[2024-03-15 10:57] VITALS: BP 118/81; PULSE 95; RESP 16; TEMP 36.7; O2SAT 98; BMI 22.4
--- NOTE | 2024-03-15 12:18 | ED_ITS ---
HPI - Fall General: Chief Complaint: Fall Stated Complaint: neck/right shoulder pain Time Seen by Provider: 03/15/24 12:10 Source: patient Mode of arrival: ambulatory Limitations: no limitations History of Present Illness: 23-year-old male states he had a fall on to his right shoulder week ago states is a ground-level fall he states been having pain in that right shoulder since and is feeling some stiffness. States pain is worse with movement of his right arm denies any neck or head pain or injury. He rates his pain currently a 2 out of 10 it is improved with rest. He has not seen anyone for this pain. Associated symptoms-after fall: Denies abdominal pain, chest pain, headache(s) or neck pain Review of Systems Const: Denies: fever(s), chills, body aches or change in appetite ENMT: Denies: throat pain or dental pain Card: Denies: chest pain Resp: Denies: dyspnea GI: Denies: abdominal pain, nausea, vomiting or diarrhea Musc: Reports: extremity pain; Denies: neck pain or back pain Skin/Breast: Denies: rash Neuro: Denies: headache(s) PFSH ED PFSH: Medical History Alcoholism Acute alcoholic pancreatitis Pancreatitis Social History Smoking and tobacco/nicotine status: current every day tobacco/nicotine user Alcohol intake: current Substance/Drug Use: never Physical Exam Const: COMMON NORMALS: no acute distress, patient oriented x3 and healthy appearing HENMT: COMMON NORMALS: normocephalic and atraumatic HEAD & SCALP: normocephalic and atraumatic Eye: COMMON NORMALS: conjunctivae normal CONJUNCTIVA: Yes conjunctivae normal Neck/C-Spine: COMMON NORMALS: full ROM and supple Chest: COMMONS NORMALS: normal inspection of the chest Resp: COMMON NORMALS: normal respiratory effort Cardio: COMMON NORMALS: regular rate RATE: regular rate Neuro: COMMON NORMALS: patient oriented x3, moves all extremities and no focal motor deficits Psych: COMMON NORMALS: mental status grossly normal, Normal thought process present and cooperative THOUGHT PROCESS: Normal thought process present Skin: COMMON NORMALS: no rashes or lesions noted and no wounds GENERAL SKIN EXAM: no rashes or lesions noted Course Vital Signs: Vital signs: Vital Signs Temperature 98.0 F 03/15/24 10:57 Pulse Rate 95 03/15/24 10:57 Respiratory Rate 16 03/15/24 10:57 Blood Pressure 118/81 03/15/24 10:57 Pulse Oximetry 98 03/15/24 10:57 Oxygen Delivery Me thod Room Air 03/15/24 10:57 MDM - Fall Medical Decision Making Patient presents here with right shoulder injury x-ray here is normal we will place him on muscle accident and Naprosyn we will get him follow-up with orthopedics he is return if worsening. Medical Records I reviewed the patient's medical records. Lab Data Radiology Impressions Shoulder X-Ray 03/15/24 10:53 IMPRESSION: No acute findings. All radiology interpretation(s) finalized by discharge Discharge Plan Discharge Patient Disposition: Home Clinical Impression: Acute pain of right shoulder Condition: Stable Prescriptions: New methocarbamol 750 mg tablet 750 mg PO Q6H PRN (Reason: spasms) Qty: 20 0RF Naprosyn 500 mg tablet 500 mg PO BID PRN (Reason: pain) Qty: 20 0RF No Action amoxicillin-pot clavulanate 875-125 mg tablet 1 tab PO BID Qty: 20 0RF ketorolac 10 mg tablet 10 mg PO TID PRN (Reason: pain) Qty: 10 0RF Discharge Orders: Discharge ED (Routine); Ordered 03/15/24 Ordered By: Cuco Barkley Referrals: Karel Phan DO [Physician] - 1-3 days Discharge Diet: Advance as tolerated Discharge Activity: Resume usual activity Patient Instructions: Shoulder Pain (ED) Coding Level of Care Code ED Surgical Dental Assistant for Kellen Rousseau
[2024-03-15] MEDS: naproxen 500 mg Tablet PO (12:27)
[2024-03-15] MEDS: methocarbamol 750 mg Tablet 1500 MG PO (12:27)
[2024-03-15 12:47] VITALS: BP 118/81; PULSE 95; RESP 18; O2SAT 98
--- NOTE | 2024-03-16 09:44 | DCPLANNER ---
messaged ortho for er f/u
== END 2024-03-15 12:48 | disposition home or self-care (01) ==
PROVIDERS: Emergency Provider Emergency Medicine
DX: M25.511 Pain in right shoulder (principal); Z72.0 Tobacco use
CPT/HCPCS: 73030; 99283

== ENCOUNTER 2024-03-17 22:08 | Emergency (ER) | payer MEDICAID, SELFPAY ==
[2024-03-17 22:16] VITALS: BP 147/92; PULSE 89; RESP 14; TEMP 36.8; O2SAT 99
--- NOTE | 2024-03-18 00:58 | W.ED.EXTPRO ---
HPI - Extremity Problem General: Chief complaint: Extremity Injury, Upper Stated complaint: Shoulder pain Time Seen by Provider: 03/18/24 00:55 History of Present Illness: Patient presents to the ER with complaints of right shoulder pain. Patient was seen here about 3 days ago and given prescriptions that he has not filled yet. Patient said the pain just keeps getting worse the point does not do about it. Patient does admit to drinking approximately 8 shots of alcohol before arrival. Review of Systems General: Reports: 10 or more systems reviewed and unremarkable except in HPI and below PFSH ED PFSH: Medical History Alcoholism Acute alcoholic pancreatitis Pancreatitis Social History Smoking and tobacco/nicotine status: current every day tobacco/nicotine user Alcohol intake: current Substance/Drug Use: never Physical Exam Const: COMMON NORMALS: no acute distress, average body habitus, patient oriented x3, no limitations, healthy appearing, alert and well nourished Neck/C-Spine: COMMON NORMALS: no JVD Chest: COMMONS NORMALS: normal inspection of the chest and normal palpation of entire chest wall Resp: COMMON NORMALS: normal respiratory effort, No retractions, No use of accessory muscles and clear to auscultation bilaterally AUSCULTATION: clear to auscultation bilaterally Cardio: COMMON NORMALS: no JVD, regular rate, regular rhythm, S1 normal heart sound present, S2 normal heart sound present, No gallops present (Cardio), No clicks present (Cardio), No murmurs present (Cardio) and No rub (Cardio) RATE: regular rate RHYTHM: regular rhythm HEART SOUNDS: S1 normal heart sound present and S2 normal heart sound present GI: COMMON NORMALS: Normal to inspection, nondistended, normoactive bowel sounds present, Soft to palpation, non-tender, No hepatosplenomegaly present and no masses PALPATION: Yes Soft to palpation and Yes No hepatosplenomegaly present Neuro: COMMON NORMALS: patient oriented x3 SENSORIUM/ORIENTATION: Yes alert Course Vital Signs: Vital signs: Vital Signs Temperature 98.2 F 03/17/24 22:16 Pulse Rate 89 03/17/24 22:16 Respiratory Rate 14 03/17/24 22:16 Blood Pressure 147/92 03/17/24 22:16 Pulse Oximetry 99 07/17/24 22:16 MDM - Extremity (Nontraumatic) Medical Decision Making Patient given 1 shot of Toradol 60 mg 1 shot of Norflex 60 mg both IM and then rechecked and he said these helped his pain drastically and he is ready go home. Patient be discharged home and told to follow-up with his primary care physician and parts picker his prescriptions that were already prescribed for him at the pharmacy. No radiology studies performed this visit Discharge Plan Discharge Patient Disposition: Home Clinical Impression: Acute pain of right shoulder Condition: Stable Prescriptions: No Action amoxicillin-pot clavulanate 875-125 mg tablet 1 tab PO BID Qty: 20 0RF ketorolac 10 mg tablet 10 mg PO TID PRN (Reason: pain) Qty: 10 0RF methocarbamol 750 mg tablet 750 mg PO Q6H PRN (Reason: spasms) Qty: 20 0RF Naprosyn 500 mg tablet 500 mg PO BID PRN (Reason: pain) Qty: 20 0RF Discharge Orders: Discharge ED (Routine); Ordered 03/18/24 Ordered By: Darek Humphreys Patient Instructions: Shoulder Pain (ED) Activity Restrictions/Additional Instructions: Please pick your prescriptions up from the last ER visit they should be at the pharmacy awaiting your arrival. Please follow-up with your family practice physician within next 7 days for further evaluation and treatment as needed. Coding Level of Care Code ED Telecommunicator Supervisor for Kellen Rousseau
[2024-03-18 01:00] VITALS: BP 123/94; PULSE 75; RESP 14; O2SAT 97
[2024-03-18] MEDS: ketorolac 60 mg/2 mL INJ IM (01:35)
[2024-03-18] MEDS: orphenadrine 30 mg/mL Inj 2 mL 60 MG IM (01:36)
[2024-03-18 02:00] VITALS: BP 124/69; PULSE 60; RESP 15; O2SAT 100
[2024-03-18 02:30] VITALS: BP 124/71; PULSE 82; RESP 12; O2SAT 99
== END 2024-03-18 02:53 | disposition home or self-care (01) ==
PROVIDERS: Emergency Provider Emergency Medicine
DX: M25.511 Pain in right shoulder (principal); Z72.0 Tobacco use
CPT/HCPCS: 96372; 99284; J1885; J2360

== ENCOUNTER 2024-04-01 00:47 | Emergency (ER) | payer MEDICAID, SELFPAY ==
[2024-04-01 00:48] VITALS: BP 117/84; PULSE 87; RESP 16; TEMP 35.6; O2SAT 98; BMI 22.4
--- NOTE | 2024-04-01 01:13 | CTR_ITS ---
PROCEDURE INFORMATION: Exam: CT Head Without Contrast Exam date and time: 04/01/2024 1:21 AM Age: 23 years old Clinical indication: Injury or trauma; Fall; Blunt trauma (contusions or hematomas); Additional info: Head injury TECHNIQUE: Imaging protocol: Computed tomography of the head without contrast. Radiation optimization: All CT scans at this facility use at least one of these dose optimization techniques: automated exposure control; mA and/or kV adjustment per patient size (includes targeted exams where dose is matched to clinical indication); or iterative reconstruction. COMPARISON: CT cervical spin wo con* [id number] 04/01/2024 1:21 AM RADIATION DOSE METRICS: Total DLP (mGy-cm): 1074.5 FINDINGS: Brain: Normal. No hemorrhage. Unremarkable white matter. No mass effect. Cerebral ventricles: No ventriculomegaly. Paranasal sinuses: Visualized sinuses are unremarkable. No fluid levels. Mastoid air cells: Visualized mastoid air cells are well aerated. Bones: Unremarkable. No acute fracture. Soft tissues: Unremarkable. CT/CT head wo con* [id number] IMPRESSION: No acute intracranial abnormality.
--- NOTE | 2024-04-01 01:13 | CTR_ITS ---
PROCEDURE INFORMATION: Exam: CT Cervical Spine Without Contrast Exam date and time: 04/01/2024 1:21 AM Age: 23 years old Clinical indication: Injury or trauma; Fall; Blunt trauma; Additional info: Leg weakness TECHNIQUE: Imaging protocol: Computed tomography of the cervical spine without contrast. Radiation optimization: All CT scans at this facility use at least one of these dose optimization techniques: automated exposure control; mA and/or kV adjustment per patient size (includes targeted exams where dose is matched to clinical indication); or iterative reconstruction. COMPARISON: CT head wo con* [id number] 04/01/2024 1:21 AM RADIATION DOSE METRICS: Total DLP (mGy-cm): 585.6 FINDINGS: Bones: No acute fracture. Normal alignment. No significant disc bulge or herniation. No severe spinal canal stenosis. No significant neural foraminal narrowing. Paranasal sinuses: Lobulated mucosal thickening of the posterior left maxillary sinus. Small area of lobulated mucosal thickening right anterior maxillary sinus. No air-fluid levels. Lungs: Lung apices are normal. Soft tissues: Unremarkable. CT/CT cervical spin wo con* [id number] IMPRESSION: Negative for acute cervical spine injury.
[2024-04-01 01:17] LABS: Basophils # 0.1 10^3/uL (0.0-0.1); Basophils % 0.9 %; Eosinophils # 0.1 10^3/uL (0.0-0.8); Eosinophils % 0.9 %; Hematocrit 39.4 % (37-53); Lymphocytes # 2.1 10^3/uL (0.8-4.8); Lymphocytes % 31.6 %; Mean Corpuscular Hemoglobin 32.8 pg (27-33); Mean Corpuscular Volume 96.6 fl (82-101); Mean Platelet Volume 9.4 fL (7.4-10.4); Monocytes # 0.4 10^3/uL (0.2-0.9); Monocytes % 6.2 %; Neutrophils # 4.03 10^3/uL (1.8-7.7); Nucleated Red Blood Cells % 0 %; Platelet Count 296 10^3/cmm (157-399); Red Blood Count 4.08 10^6/uL (3.85-5.65); Red Cell Distribution Width 12.4 % (12.1-15.1); White Blood Count 6.73 10^3/uL (3.29-11.43)
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
[2024-04-01 01:32] LABS: Alanine Aminotransferase 35 U/L (0-41); Albumin Level 4.8 g/dL (3.5-5.2); Alkaline Phosphatase 70 U/L (40-130); Anion Gap 18.9 (5-19); Aspartate Amino Transferase 34 U/L (0-40); Blood Urea Nitrogen 11 mg/dL (6-20); Calcium 9.7 mg/dL (8.5-10.5); Carbon Dioxide 22 mmol/L (22-29); Chloride 106 mmol/L (98-107); Creatinine Clr Calc Pharmacy 161.8617; Globulin 3.3 g/dL (1.3-4.6); Glomerular Filtration Rate 117.8 mL/min (90-130); Glucose 125 mg/dL (65-115); Osmolality Calculated 297 mOsm/kg (285-295); Potassium 3.9 mmol/L (3.5-5.1); Sodium 143 mmol/L (136-145); Total Bilirubin 0.2 mg/dL (0.15-1.2); Total Protein 8.1 g/dL (6.6-8.7)
[2024-04-01] MEDS: sodium chloride 0.9% 1,000 ML 999 ML IV (01:36)
[2024-04-01 01:42] LABS: Alcohol Level 345 mg/dL (0-10)
[2024-04-01 02:18] VITALS: BP 112/72; PULSE 83; O2SAT 98
[2024-04-01 03:18] VITALS: BP 119/76; PULSE 87; O2SAT 100
[2024-04-01 06:00] VITALS: BP 123/85; PULSE 90; RESP 16; O2SAT 100
--- NOTE | 2024-04-01 06:31 | PC.NURSE ---
Dr Rivera instructed nurse Janelle RN to ambulate patient at this time. MD into room at this time. MD instructed RN that pt is ready for discharge and can be discharged from room.
--- NOTE | 2024-04-01 06:41 | PC.NURSE ---
Patient ambulated to waiting room to wait for medicaid ride.
[2024-04-01 06:45] VITALS: BP 123/85; PULSE 90; RESP 16; O2SAT 100
== END 2024-04-01 06:47 | disposition home or self-care (01) ==
PROVIDERS: Student in an Organized Health Care Education/Training Program; Emergency Provider Family Medicine
DX: F10.129 Alcohol abuse with intoxication, unspecified (principal); Y90.8 Blood alcohol level of 240 mg/100 ml or more; F17.210 Nicotine dependence, cigarettes, uncomplicated
CPT/HCPCS: 70450; 72125; 80053; 80307; 83735; 85025; 99284; J7030

== ENCOUNTER 2024-04-03 13:39 | Emergency (ER) | payer MEDICAID, SELFPAY ==
[2024-04-03 13:46] VITALS: BP 120/81; PULSE 80; RESP 17; TEMP 36.8; O2SAT 97; BMI 22.4
--- NOTE | 2024-04-03 14:26 | ED_ITS ---
<Statement entered by Andre LingDO - 04/03/24 16:58> I was one of the attending physicians in the emergency department this patient was seen by the physicians assistant professor of life sciences. This case was reviewed with me and I did a focused interview and examination of the patient as well. The patient presented with vague neurologic symptoms and initially was presented to be as noted. Additional history was that he apparently had drank to excess a few nights ago and apparently had fallen striking his head and neck. Was evaluated emergency department at that time and cleared with regards to any evidence of bony cervical spine and/or cranial injury by CT scan. Over the past 48 hours he has noted some discoordination and weakness of his upper extremities. There was some mild subjective weakness noted of his lower extremities but he was still able to walk and move. He required some assistance with fine motor activities of his upper extremities. My clinical exam after the initial workup by the physician assistant professor of life sciences reveals a person who is alert and awake. He had some mild cervical spine tenderness noted. He had notable paradichlorobenzene tender strength weakness of the left upper extremity and less so the right upper extremity. He had some diminished sensation as well. His lower extremities revealed normal strength to my examination with preserved sensation. A bedside ultrasound was performed and he had no evidence of urinary retention and a rectal examination revealed good rectal tone. At this point his clinical examination suggested a cord contusion likely a possible central cord syndrome. We have no MRI imaging available at this facility today so the recommendations were to transfer him to a MRI and neurosurgical capable facility. He is being transferred to the emergency department at [facility]. Currently in unchanged stable clinical condition HPI - Neuro Symptoms/Deficit 2 General: Chief Complaint: Neck Pain/Injury Stated Complaint: full body numbness 3 days post fall Time Seen by Provider: 04/03/24 13:53 Source: patient Mode of arrival: wheelchair Limitations: no limitations History of Present Illness: Patient is a 23-year-old male who presents to ED today with complaint of full body numbness over the past 3 days. Patient states he fell 3 days ago. He was seen here in our facility after the fall and had a normal CT head and cervical spine performed. It was suggested at that time that the fall was secondary to him being acutely intoxicated as his blood alcohol was 340 at the time. Patient feels like his legs got weak causing him to fall. He states he fell backwards and struck the back of his neck on a corner of a staircase. Patient states since then he has had numbness to his arms and weakness to his legs. He states his arms are so numb and weak that he is unable to hold utensils and his has been having to feed him. He is not having any trouble swallowing or speaking. He states he requires assistance with ambulating. He is not having any fecal incontinence or urinary retention. No recent tick bites. No fevers. Onset (ago): day(s) Timing confirmed by: spouse History of same: No Relieving factors: none Exacerbating factors: none On Anticoagulants: No Associated symptoms: Reports no associated symptoms; Deny chest pain, headache(s), malaise, nausea or vomiting Treatments Prior to Arrival: none Review of Systems 2 Const: Denies: fever(s), chills, body aches, fatigue or malaise Eyes: Denies: change in vision or blurry vision Card: Denies: chest pain or palpitations Resp: Denies: dyspnea GI: Denies: nausea or vomiting Musc: Reports: neck pain and muscle weakness; Denies: back pain, extremity pain, extremity swelling or joint pain Neuro: Reports: numbness in extremities, weakness in extremities, sensory changes and difficulty walking; Denies: headache(s) PFSH ED 2 PFSH: Medical History Alcoholism Acute alcoholic pancreatitis Pancreatitis Social History Smoking and tobacco/nicotine status: current every day tobacco/nicotine user Alcohol intake: current Substance/Drug Use: never Physical Exam 2 Const: COMMON NORMALS: no acute distress, average body habitus, patient oriented x3, no limitations, healthy appearing, alert and well nourished G ENERAL APPEARANCE: cooperative ORIENTATION/CONSCIOUSNESS: Yes awake, Yes oriented to person, Yes oriented to place and Yes oriented to time HENMT: COMMON NORMALS: normocephalic and atraumatic HEAD & SCALP: normal to inspection, normocephalic and atraumatic FACE & SINUS: normal facial exam Eye: COMMON NORMALS: Equal, round and reactive pupils present and EOMs intact bilaterally GENERAL EYE: appearance normal, both eyes and all related structures and normal light reflex PUPIL: Yes Equal, round and reactive pupils present DIRECT OPHTHALMOSCOPY: Yes normal light reflex Neck/C-Spine: GENERAL: Yes normal visual inspection CERVICAL SPINE: Yes pain with cervical ROM, Yes Cervical spine tenderness and No step off deformity Chest: COMMONS NORMALS: normal inspection of the chest and normal palpation of entire chest wall Resp: COMMON NORMALS: normal respiratory effort and clear to auscultation bilaterally AUSCULTATION: clear to auscultation bilaterally Cardio: COMMON NORMALS: regular rate and regular rhythm RATE: regular rate RHYTHM: regular rhythm GI: COMMON NORMALS: Normal to inspection, nondistended, normoactive bowel sounds present, Soft to palpation and non-tender PALPATION: Yes Soft to palpation Back/Pelvis: COMMON NORMALS: thoracic and lumbar spine normal to inspection Extremity: COMMON NORMALS: capillary refill normal, no joint enlargement, no clubbing, cyanosis or edema, no calf tenderness and no pedal edema GENERAL: Y es normal exam except as noted Neuro: COMMON NORMALS: patient oriented x3 SENSORIUM/ORIENTATION: Yes alert, Yes oriented to person, Yes oriented to place and Yes oriented to time COORDINATION/BALANCE: [id number] test normal SPEECH: speech normal G AIT: Yes Unable to assess gait MOTOR EXAM: Pronator motor function not present, Abnormal motor strength present, Tremors during motor activity present and Other motor observations present (profound weakness to arms L>R; almost no paradichlorobenzene tender strength) DEEP TENDON REFLEXES: Right patellar reflex intensity grade: 3+, Left patellar reflex intensity grade: 3+, Right ankle reflex intensity grade: 4+ and Left ankle reflex intensity grade: 4+ COORDINATION: f [id number] test normal Course 2 Vital Signs: Vital signs: Vital Signs Temperature 98.2 F 04/03/24 13:46 Pulse Rate 65 04/03/24 16:32 Respiratory Rate 16 04/03/24 16:32 Blood Pressure 125/80 04/03/24 16:32 Pulse Oximetry 99 04/03/24 16:32 Oxygen Delivery Me thod Room Air 04/03/24 16:32 MDM - Neuro Symptoms/Deficit Medical Decision Making Patient is a 23-year-old male here for complaints of weakness and numbness all over . He has profound weakness to his bilateral upper extremities. He has hyperreflexia and ankle clonus to his lower extremities. He is not having any dysphagia or trouble speaking. No trouble breathing. He has had recent neck trauma. Rectal tone preserved. Spoke to Dr. Ling who also evaluated patient. Recommend transfer at this time due to no MRI capability here. I spoke to [facility] ED physician Dr. Serna who recommends placing patient in a c-collar and is excepting transfer. Lab Data 04/03/24 14:29 04/03/24 14:29 Laboratory Results WBC 7.48 10^3/uL (3.29-11.43) 04/03/24 14:29 RBC 4.00 10^6/uL (3.85-5.65) 04/03/24 14:29 Hgb 12.90 g/dL (11.27-16.99) 04/03/24 14:29 Hct 38.1 % (37-53) 04/03/24 14:29 MCV 95.3 fl (82-101) 04/03/24 14:29 MCH 32.3 pg (27-33) 04/03/24 14:29 MCHC 33.9 g/dL (30-55) 04/03/24 14:29 RDW 12.2 % (12.1-15.1) 04/03/24 14:29 Plt Count 236 10^3/cmm (157-399) 04/03/24 14:29 MPV 9.2 fL (7.4-10.4) 04/03/24 14:29 Neut % (Auto) 71.7 % 04/03/24 14:29 Lymph % (Auto) 17.1 % 04/03/24 14:29 [place] % (Auto) 8.8 % 04/03/24 14:29 Eos % (Auto) 1.6 % 04/03/24 14:29 Baso % (Auto) 0.5 % 04/03/24 14:29 Neut # (Auto) 5.36 10^3/uL (1.8-7.7) 04/03/24 14:29 Lymph # (Auto) 1.3 10^3/uL (0.8-4.8) 04/03/24 14:29 [place] # (Auto) 0.7 10^3/uL (0.2-0.9) 04/03/24 14:29 Eos # (Auto) 0.1 10^3/uL (0.0-0.8) 04/03/24 14:29 Baso # (Auto) 0.0 10^3/uL (0.0-0.1) 04/03/24 14:29 Nucleated RBC % (auto) 0 % 04/03/24 14:29 Nucleated RBCs # 0.0 /100WBC 04/03/24 14:29 Sodium 139 mmol/L (136-145) 04/03/24 14:29 Potassium 4.2 mmol/L (3.5-5.1) 04/03/24 14:29 Chloride 101 mmol/L (98-107) 04/03/24 14:29 Carbon Dioxide 24 mmol/L (22-29) 04/03/24 14:29 Anion Gap 18.2 (5-19) 04/03/24 14:29 BUN 10 mg/dL (6-20) 04/03/24 14:29 Creatinine 0.6 mg/dL (0.7-1.2) L 04/03/24 14:29 GFR Calculation 164.2 mL/min (90-130) H 04/03/24 14:29 Glucose 113 mg/dL (65-115) 04/03/24 14:29 Calculated Osmolality 288 mOsm/kg (285-295) 04/03/24 14:29 Calcium 10.2 mg/dL (8.5-10.5) 04/03/24 14:29 Total Bilirubin 0.5 mg/dL (0.15-1.2) 04/03/24 14:29 AST 23 U/L (0-40) 04/03/24 14:29 ALT 26 U/L (0-41) 04/03/24 14:29 Alkaline Phosphatase 61 U/L (40-130) 04/03/24 14:29 Creatine Kinase 44 U/L (39-308) 04/03/24 14:29 Total Protein 7.8 g/dL (6.6-8.7) 04/03/24 14:29 Albumin 4.7 g/dL (3.5-5.2) 04/03/24 14:29 Globulin 3.1 g/dL (1.3-4.6) 04/03/24 14:29 Vitamin B12 632 pg/mL (232-1245) 04/03/24 14:29 Folate > 20.0 ng/mL (4.5-32.2) 04/03/24 14:29 Urine Opiates Screen Negative ng/mL (Negative) 04/03/24 14:41 Ur Barbiturates Screen Negative ng/mL (Negative) 04/03/24 14:41 Ur Phencyclidine Scrn Negative ng/mL (Negative) 04/03/24 14:41 Ur Amphetamines Screen Negative ng/mL (Negative) 04/03/24 14:41 U Benzodiazepines Scrn Negative ng/mL (Negative) 04/03/24 14:41 Urine Cocaine Screen Negative ng/mL (Negative) 04/03/24 14:41 U Marijuana (THC) Screen Positive ng/mL (Negative) H 04/03/24 14:41 Ethyl Alcohol < 10 mg/dL (0-10) 04/03/24 14:29 No radiology studies performed this visit Discharge Plan Discharge Patient Disposition: Xfer Short-Term Hosp Clinical Impression: Neurologic abnormality Condition: Stable Prescriptions: No Action amoxicillin-pot clavulanate 875-125 mg tablet 1 tab PO BID Qty: 20 0RF ketorolac 10 mg tablet 10 mg PO TID PRN (Reason: pain) Qty: 10 0RF methocarbamol 750 mg tablet 750 mg PO Q6H PRN (Reason: spasms) Qty: 20 0RF Naprosyn 500 mg tablet 500 mg PO BID PRN (Reason: pain) Qty: 20 0RF Coding Level of Care Code ED Hr Specialist for Kellen Rousseau
[2024-04-03 14:36] LABS: Basophils % 0.5 %; Eosinophils # 0.1 10^3/uL (0.0-0.8); Eosinophils % 1.6 %; Hematocrit 38.1 % (37-53); Lymphocytes # 1.3 10^3/uL (0.8-4.8); Lymphocytes % 17.1 %; Mean Corpuscular HGB Conc 33.9 g/dL (30-55); Mean Corpuscular Hemoglobin 32.3 pg (27-33); Mean Corpuscular Volume 95.3 fl (82-101); Mean Platelet Volume 9.2 fL (7.4-10.4); Monocytes # 0.7 10^3/uL (0.2-0.9); Monocytes % 8.8 %; Neutrophils # 5.36 10^3/uL (1.8-7.7); Neutrophils % 71.7 %; Nucleated Red Blood Cells % 0 %; Platelet Count 236 10^3/cmm (157-399); Red Cell Distribution Width 12.2 % (12.1-15.1); White Blood Count 7.48 10^3/uL (3.29-11.43)
[2024-04-03] MEDS: sodium chloride 0.9% 1,000 ML 999 ML IV (14:37)
[2024-04-03 14:56] LABS: Amphetamines Screen Urine Negative (Negative); Barbiturates Screen Urine Negative (Negative); Benzodiazepines Screen Urine Negative (Negative); Cocaine Screen Urine Negative (Negative); Opiate Screen Urine Negative (Negative); PCP Screen Urine Negative (Negative); THC Screen Urine Positive (Negative)
[2024-04-03 14:57] LABS: Alanine Aminotransferase 26 U/L (0-41); Albumin Level 4.7 g/dL (3.5-5.2); Alkaline Phosphatase 61 U/L (40-130); Anion Gap 18.2 (5-19); Aspartate Amino Transferase 23 U/L (0-40); Blood Urea Nitrogen 10 mg/dL (6-20); Calcium 10.2 mg/dL (8.5-10.5); Carbon Dioxide 24 mmol/L (22-29); Chloride 101 mmol/L (98-107); Creatine Phosphokinase 44 U/L (39-308); Globulin 3.1 g/dL (1.3-4.6); Glomerular Filtration Rate 164.2 mL/min (90-130); Glucose 113 mg/dL (65-115); Osmolality Calculated 288 mOsm/kg (285-295); Potassium 4.2 mmol/L (3.5-5.1); Sodium 139 mmol/L (136-145); Total Bilirubin 0.5 mg/dL (0.15-1.2); Total Protein 7.8 g/dL (6.6-8.7)
[2024-04-03 15:03] LABS: Creatinine Clr Calc Pharmacy 215.8156
[2024-04-03 15:31] LABS: Vitamin B12 632 pg/mL (232-1245)
[2024-04-03 15:38] LABS: Alcohol Level < 10 mg/dL (0-10)
[2024-04-03 15:54] LABS: Folate Level > 20.0 ng/mL (4.5-32.2)
[2024-04-03 16:32] VITALS: BP 125/80; PULSE 65; RESP 16; O2SAT 99
[2024-04-03 18:00] VITALS: BP 135/85; PULSE 66; RESP 18; O2SAT 98
[2024-04-03 18:44] VITALS: O2SAT 100
[2024-04-03] MEDS: ondansetron 2 mg/ML SDV 2 mL 4 MG IVP (18:44)
[2024-04-03] MEDS: morphine 4 mg/mL SDV 1 mL IVP (18:44)
[2024-04-03 20:06] VITALS: BP 137/90; PULSE 80; RESP 15; TEMP 36.8; O2SAT 100
== END 2024-04-03 20:08 | disposition short-term general hospital (02) ==
PROVIDERS: Emergency Provider Physician Assistant
DX: R29.90 Unspecified symptoms and signs involving the nervous system (principal); Z72.0 Tobacco use
CPT/HCPCS: 80053; 80306; 80307; 82550; 82607; 82746; 85025; 96361; 96374; 96375; 99285; J2270; J2405; J3411; J7030

== ENCOUNTER → 2024-05-07 15:00 | Outpatient (BNVA) | payer MEDICAID, SELFPAY | DX: K85.20 Alcohol induced acute pancreatitis without necrosis or infection | CPT/HCPCS: 80053; 83690 ==

== ENCOUNTER 2024-11-03 17:49 | Emergency (ER) | payer MEDICAID, SELFPAY ==
[2024-11-03 17:54] VITALS: BP 117/81; PULSE 90; RESP 16; O2SAT 99; BMI 22.4
--- NOTE | 2024-11-03 18:01 | XRR_ITS ---
PROCEDURE INFORMATION: Exam: XR Right Ankle Exam date and time: 11/03/2024 6:07 PM Age: 24 years old Clinical indication: Injury or trauma; Fall; Blunt trauma; Ankle; Right; Additional info: Fall, ankle pain TECHNIQUE: Imaging protocol: Radiologic exam of the right ankle. Views: 3 or more views. COMPARISON: No relevant prior studies available. FINDINGS: Bones/joints: Bony cortical margins and articulations appear to be intact and in the range of normal. Soft tissues: Prominent generalized soft tissue swelling is seen about the lateral malleolus. XR/XR ankle RT min 3V* [id number] IMPRESSION: 1. No acute osseous plain-film findings. 2. Prominent lateral malleolar soft tissue swelling suggests ligamentous injury.
--- NOTE | 2024-11-03 18:22 | W.ED.EXTPRO ---
HPI - Extremity Problem General: Chief complaint: Extremity Injury, Lower Stated complaint: fall - right ankle has weak pulse Time Seen by Provider: 11/03/24 17:58 History of Present Illness: Patient presents to the ER by EMS with complaints of a fall due to drinking. Patient does have pain and swelling in his right ankle. Patient does say he drinks daily. Patient says he may have had a seizure but is unaware of that. Patient's only complaint this time is his ankle pain. Pulses are palpable. Ankle is swollen. Related Data Home Medications ?Medication ?Instructions ?Recorded ?Confirmed acetaminophen 325 mg capsule 325 mg PO QID PRN 05/07/24 05/07/24 gabapentin 300 mg capsule 300 mg PO DAILY 05/07/24 05/07/24 magnesium oxide 400 mg PO DAILY 05/07/24 05/07/24 multivitamin 1 tab PO DAILY 05/07/24 05/07/24 oxycodone 5 mg tablet 5 mg PO Q6H PRN 05/07/24 05/07/24 thiamine HCl (vitamin B1) 100 mg 100 mg PO DAILY 05/07/24 05/07/24 tablet Previous Rx's ?Medication ?Instructions ?Recorded phenobarbital 64.8 mg tablet 64.8 mg PO DAILY #30 tabs 05/07/24 Allergies Allergy/AdvReac Type Severity Reaction Status Date / Time No Known Allergies Allergy Verified 05/07/24 14:06 Review of Systems General: Reports: 10 or more systems reviewed and unremarkable except in HPI and below PFSH ED PFSH: Medical History Seizures Alcoholism Acute alcoholic pancreatitis Pancreatitis Surgical History Status post cervical spinal fusion Social History Smoking and tobacco/nicotine status: current every day tobacco/nicotine user cigarettes Packs smoked per day: 0.5 Alcohol intake: current Substance/Drug Use: never Adopted: No service: No Current occupational exposures/hazards: Yes Physical Exam Const: COMMON NORMALS: no acute distress, average body habitus, patient oriented x3, no limitations, healthy appearing, alert and well nourished HENMT: COMMON NORMALS: normocephalic, atraumatic, hearing grossly normal bilaterally, external ears normal, Normal external nose present, moist oral mucous membranes and oropharynx normal HEAD & SCALP: normocephalic and atraumatic NOSE: Normal external nose present EXTERNAL EAR: Yes external ears normal Eye: COMMON NORMALS: Equal, round and reactive pupils present, EOMs intact bilaterally, conjunctivae normal and no scleral icterus CONJUNCTIVA: Yes conjunctivae normal PUPIL: Yes Equal, round and reactive pupils present Neck/C-Spine: COMMON NORMALS: full ROM, no lymphadenopathy, supple, no meningeal signs, no JVD and Thyroid normal THYROID: Thyroid normal Chest: COMMONS NORMALS: normal inspection of the chest and normal palpation of entire chest wall Resp: COMMON NORMALS: normal respiratory effort, No retractions, No use of accessory muscles and clear to auscultation bilaterally AUSCULTATION: clear to auscultation bilaterally Cardio: COMMON NORMALS: no JVD, regular rate, regular rhythm, S1 normal heart sound present, S2 normal heart sound present, No gallops present (Cardio), No clicks present (Cardio), No murmurs present (Cardio) and No rub (Cardio) RATE: regular rate RHYTHM: regular rhythm HEART SOUNDS: S1 normal heart sound present and S2 normal heart sound present GI: COMMON NORMALS: Normal to inspection, nondistended, normoactive bowel sounds present, Soft to palpation, non-tender, No hepatosplenomegaly present and no masses PALPATION: Yes Soft to palpation and Yes No hepatosplenomegaly present Extremity: NARRATIVE EXTREMITY EXAM: Right lateral ankle swollen tender to palpate, pulses are easily palpable in the dorsalis pedis. No obvious crepitus or deformity. Neuro: COMMON NORMALS: patient oriented x3 SENSORIUM/ORIENTATION: Yes alert MENINGEAL SIGNS: Yes no meningeal signs Course Vital Signs: Vital signs: Vital Signs Pulse Rate 90 11/03/24 17:54 Respiratory Rate 16 11/03/24 17:54 Blood Pressure 117/81 11/03/24 17:54 Pulse Oximetry 99 11/03/24 17:54 MDM - Extremity (Nontraumatic) Medical Decision Making We were waiting for the official x-ray report patient decided he was ready to leave, he was instructed he would have to leave AGAINST MEDICAL ADVICE, which he did. Medical Records I reviewed the patient's medical records. Lab Data I reviewed the patient's lab results. All radiology interpretation(s) finalized by discharge Discharge Plan Discharge Patient Disposition: Left Against Medical Advice Clinical Impression: Left against medical advice Condition: Stable Prescriptions: No Action magnesium oxide 400 mg magnesium tablet 400 mg PO DAILY multivitamin Tablet 1 tab PO DAILY acetaminophen 325 mg capsule 325 mg PO QID PRN gabapentin 300 mg capsule 300 mg PO DAILY oxycodone 5 mg tablet 5 mg PO Q6H PRN thiamine HCl (vitamin B1) 100 mg tablet 100 mg PO DAILY phenobarbital 64.8 mg tablet 64.8 mg PO DAILY Qty: 30 2RF Patient Instructions: Against Medical Advice (ED) Print Language: Hungarian Coding Level of Care Code ED Hydraulic Hammer Operator for Kellen Rousseau
== END 2024-11-03 19:26 | disposition left against medical advice (07) ==
PROVIDERS: Emergency Provider Emergency Medicine
DX: Z53.21 Procedure and treatment not carried out due to patient leaving prior to being seen by health care provider (principal); F17.210 Nicotine dependence, cigarettes, uncomplicated
CPT/HCPCS: 73610; 99283

== ENCOUNTER 2024-11-09 00:19 | Emergency (ER) | payer MEDICAID, SELFPAY ==
[2024-11-09 00:27] VITALS: BP 128/78; PULSE 129; RESP 16; TEMP 36.4; O2SAT 97
--- NOTE | 2024-11-09 00:49 | XRR_ITS ---
PROCEDURE INFORMATION: Exam: XR Right Foot Exam date and time: 11/09/2024 12:58 AM Age: 24 years old Clinical indication: Injury or trauma; Fall; Blunt trauma; Foot; Right; Additional info: Injury/pain TECHNIQUE: Imaging protocol: Radiologic exam of the right foot. Views: 3 or more views. COMPARISON: ([facility], ) 01/01/2025 18:07 FINDINGS: Bones/joints: There is mildly displaced oblique fracture of the distal fibula at the level of the ankle joint. No dislocation. Soft tissues: Swelling of the soft tissues around the ankle is present. XR/XR foot RT min 3V* [id number] IMPRESSION: Mildly displaced oblique fracture of the distal fibula at the level of the ankle joint.
--- NOTE | 2024-11-09 00:49 | XRR_ITS ---
PROCEDURE INFORMATION: Exam: XR Right Ankle Exam date and time: 11/09/2024 1:03 AM Age: 24 years old Clinical indication: Injury or trauma; Fall; Blunt trauma; Ankle; Right; Additional info: Injury, pain TECHNIQUE: Imaging protocol: Radiologic exam of the right ankle. Views: 3 or more views. COMPARISON: CR ([facility], ) 01/01/2025 18:07 FINDINGS: Bones/joints: There is mildly displaced oblique fracture of the distal fibula at the level of the ankle joint. No dislocation. Soft tissues: There is swelling of the soft tissues around the ankle. XR/XR ankle RT min 3V* [id number] IMPRESSION: Mildly displaced oblique fracture of the distal fibula at the level of the ankle joint.
--- NOTE | 2024-11-09 01:01 | W.ED.EXTPRO ---
Documented by User: EBENEZER Herring 11/09/24 18:30 HPI - Extremity Problem General: Chief complaint: Extremity Injury, Lower Stated complaint: R foot Pain Time Seen by Provider: 11/09/24 00:49 Source: patient Mode of arrival: ambulatory Limitations: no limitations History of Present Illness: Patient is a 24-year-old male who presents to the emergency department complaining of right foot and ankle pain. He states that last week he was wrestling with a friend, and this caused injury to the foot. Notes persistent swelling and pain, essentially make it to where he has been unable to walk secondary to the pain. Notes that he is just here for a work note, however. He has been taking NSAIDs, not much relief. No previous fractures or injuries to the foot. Radiation of pain approximately. MD Complaint: extremity pain and joint pain Onset (ago): week(s) (1) Pain Consistency: constant Location: right and lower extremity (Foot and ankle) Radiation: proximal Relieving factors: nothing Exacerbating factors: range of motion, weight bearing and walking Associated symptoms: Deny chest pain, fever(s) or rash Related Data Home Medications ?Medication ?Instructions ?Recorded ?Confirmed acetaminophen 325 mg capsule 325 mg PO QID PRN 05/07/24 05/07/24 gabapentin 300 mg capsule 300 mg PO DAILY 05/07/24 05/07/24 magnesium oxide 400 mg PO DAILY 05/07/24 05/07/24 multivitamin 1 tab PO DAILY 05/07/24 05/07/24 oxycodone 5 mg tablet 5 mg PO Q6H PRN 05/07/24 05/07/24 thiamine HCl (vitamin B1) 100 mg 100 mg PO DAILY 05/07/24 05/07/24 tablet Previous Rx's ?Medication ?Instructions ?Recorded phenobarbital 64.8 mg tablet 64.8 mg PO DAILY #30 tabs 05/07/24 dexamethasone 6 mg tablet 6 mg PO DAILY 5 days #5 tabs 11/09/24 diclofenac sodium 50 mg 50 mg PO BID PRN pain #14 tabs 11/09/24 tablet,delayed release Allergies Allergy/AdvReac Type Severity Reaction Status Date / Time No Known Allergies Allergy Verified 11/09/24 00:33 Review of Systems General: Reports: 10 or more systems reviewed and unremarkable except in HPI and below Const: Denies: fever(s) or chills Card: Denies: chest pain Resp: Denies: dyspnea or productive cough GI: Denies: abdominal pain, nausea, vomiting or diarrhea : Denies: flank pain Musc: Reports: extremity pain, extremity swelling, joint pain and joint swelling; Denies: neck pain, back pain, joint redness, joint warmth, limited range of motion or muscle weakness Skin/Breast: Denies: rash Neuro: Denies: headache(s), numbness in extremities or weakness in extremities PFSH ED PFSH: Medical History Seizures Alcoholism Acute alcoholic pancreatitis Pancreatitis Surgical History Status post cervical spinal fusion Social History Smoking and tobacco/nicotine status: current every day tobacco/nicotine user cigarettes Packs smoked per day: 0.5 Alcohol intake: current Substance/Drug Use: never Adopted: No service: No Current occupational exposures/hazards: Yes Physical Exam Const: COMMON NORMALS: no acute distress, patient oriented x3, no limitations, healthy appearing, alert and well nourished HENMT: COMMON NORMALS: normocephalic and atraumatic HEAD & SCALP: normocephalic and atraumatic Neck/C-Spine: COMMON NORMALS: full ROM, supple and no meningeal signs Resp: COMMON NORMALS: normal respiratory effort, No use of accessory muscles and clear to auscultation bilaterally AUSCULTATION: clear to auscultation bilaterally Cardio: COMMON NORMALS: regular rate and regular rhythm RATE: regular rate RHYTHM: regular rhythm Extremity: COMMON NORMALS: full ROM, capillary refill normal, no joint enlargement and no clubbing, cyanosis or edema NARRATIVE EXTREMITY EXAM: Diffuse swelling to the right foot and ankle with bruising noted. Dorsalis pedis and posterior tibial pulse palpable. He is tender to the posterior ankle involving the Achilles tendon. Distal neurovascular exam intact. Neuro: COMMON NORMALS: patient oriented x3, moves all extremities, no focal motor deficits and no sensory deficits noted SENSORIUM/ORIENTATION: Yes alert MENINGEAL SIGNS: Yes no meningeal signs Skin: COMMON NORMALS: no rashes or lesions noted GENERAL SKIN EXAM: no rashes or lesions noted Course Vital Signs: Vital signs: Vital Signs Temperature 97.6 F 11/09/24 00:27 Pulse Rate 95 11/09/24 02:06 Respiratory Rate 16 11/09/24 00:27 Blood Pressure 125/76 11/09/24 02:06 Pulse Oximetry 95 11/09/24 02:06 Oxygen Delivery Me thod Room Air 11/09/24 01:02 MDM - Extremity (Nontraumatic) Medical Decision Making X-ray of the ankle: I do not see any acute process. No changes from a week ago. Films were interpreted by myself the emergency room provider and pending final radiology review. X-ray of the foot: I do not see any acute process. No fractures or dislocations. Films were interpreted by myself the emergency room provider and pending final radiology review. Assessment and plan: Ankle strain - Discharged home - Discussed plan with patient. Answered any questions. - Evaluation and treatment of this problem were appropriate in the emergency setting. Patient was called and told to return to the ED so that we could place him in a splint and refer him to podiatry. Lab Data Radiology Impressions Ankle X-Ray 11/09/24 00:49 IMPRESSION: Mildly displaced oblique fracture of the distal fibula at the level of the ankle joint. Foot X-Ray 11/09/24 00:49 IMPRESSION: Mildly displaced oblique fracture of the distal fibula at the level of the ankle joint. All radiology interpretation(s) finalized by discharge Discharge Plan Discharge Patient Disposition: Home Clinical Impression: Ankle sprain and strain Condition: Stable Prescriptions: New dexamethasone 6 mg tablet 6 mg PO DAILY 5 Days Qty: 5 0RF diclofenac sodium 50 mg tablet,delayed release (DR/EC) 50 mg PO BID PRN (Reason: pain) Qty: 14 0RF No Action magnesium oxide 400 mg magnesium tablet 400 mg PO DAILY multivitamin Tablet 1 tab PO DAILY acetaminophen 325 mg capsule 325 mg PO QID PRN gabapentin 300 mg capsule 300 mg PO DAILY oxycodone 5 mg tablet 5 mg PO Q6H PRN thiamine HCl (vitamin B1) 100 mg tablet 100 mg PO DAILY phenobarbital 64.8 mg tablet 64.8 mg PO DAILY Qty: 30 2RF Discharge Orders: Discharge ED (Routine); Ordered 11/09/24 Ordered By: Vani Matos Discharge Diet: As Directed Discharge Activity: Increase activity as tolerated Patient Instructions: Opioid Safety, Pain Management Activity Restrictions/Additional Instructions: Thank you for choosing [facility] for your healthcare needs today. Please realize this is an emergency room and that we are providing you with a medical screening exam and this may not be complete and all inclusive of all the testing and or work up that you may need to determine your ailment or severity of your illness. You have been screened and evaluated and felt safe for discharge. Health conditions do change or evolve sometimes and as such it is important that you follow up with your Primary Doctor to be re checked, 3-5 days is a general good time frame for follow up. You are always welcome to return to the ED for re assessment if your symptoms are worsening or you have new concerns Stand Alone Forms: Work/School Release Print Language: Upper Sorbian Coding Level of Care Code ED Protection Specialist for Chg Fwd Documented by User: Vani Matos MD 11/09/24 18:49 HPI - Extremity Problem General: Chief complaint: Extremity Injury, Lower Stated complaint: R foot Pain Time Seen by Provider: 11/09/24 00:49 Related Data Home Medications ?Medication ?Instructions ?Recorded ?Confirmed acetaminophen 325 mg capsule 325 mg PO QID PRN 05/07/24 05/07/24 gabapentin 300 mg capsule 300 mg PO DAILY 05/07/24 05/07/24 magnesium oxide 400 mg PO DAILY 05/07/24 05/07/24 multivitamin 1 tab PO DAILY 05/07/24 05/07/24 oxycodone 5 mg tablet 5 mg PO Q6H PRN 05/07/24 05/07/24 thiamine HCl (vitamin B1) 100 mg 100 mg PO DAILY 05/07/24 05/07/24 tablet Previous Rx's ?Medication ?Instructions ?Recorded phenobarbital 64.8 mg tablet 64.8 mg PO DAILY #30 tabs 05/07/24 dexamethasone 6 mg tablet 6 mg PO DAILY 5 days #5 tabs 11/09/24 diclofenac sodium 50 mg 50 mg PO BID PRN pain #14 tabs 11/09/24 tablet,delayed release Allergies Allergy/AdvReac Type Severity Reaction Status Date / Time No Known Allergies Allergy Verified 11/09/24 00:33 [facility] ED PFSH: Medical History Seizures Alcoholism Acute alcoholic pancreatitis Pancreatitis Surgical History Status post cervical spinal fusion Social History Smoking and tobacco/nicotine status: current every day tobacco/nicotine user cigarettes Packs smoked per day: 0.5 Alcohol intake: current Substance/Drug Use: never Adopted: No service: No Current occupational exposures/hazards: Yes Course Vital Signs: Vital signs: Vital Signs Temperature 97.6 F 11/09/24 00:27 Pulse Rate 95 11/09/24 02:06 Respiratory Rate 16 11/09/24 00:27 Blood Pressure 125/76 11/09/24 02:06 Pulse Oximetry 95 11/09/24 02:06 Oxygen Delivery Me thod Room Air 11/09/24 01:02 MDM - Extremity (Nontraumatic) Medical Decision Making X-ray of the ankle: I do not see any acute process. No changes from a week ago. Films were interpreted by myself the emergency room provider and pending final radiology review. X-ray of the foot: I do not see any acute process. No fractures or dislocations. Films were interpreted by myself the emergency room provider and pending final radiology review. Assessment and plan: Ankle strain - Discharged home - Discussed plan with patient. Answered any questions. - Evaluation and treatment of this problem were appropriate in the emergency setting. Patient was called and told to return to the ED so that we could place him in a splint and refer him to podiatry. Lab Data Radiology Impressions Ankle X-Ray 11/09/24 00:49 IMPRESSION: Mildly displaced oblique fracture of the distal fibula at the level of the ankle joint. Foot X-Ray 11/09/24 00:49 IMPRESSION: Mildly displaced oblique fracture of the distal fibula at the level of the ankle joint. Discharge Plan Discharge Patient Disposition: Home Clinical Impression: Ankle sprain and strain Condition: Stable Prescriptions: New dexamethasone 6 mg tablet 6 mg PO DAILY 5 Days Qty: 5 0RF diclofenac sodium 50 mg tablet,delayed release (DR/EC) 50 mg PO BID PRN (Reason: pain) Qty: 14 0RF No Action magnesium oxide 400 mg magnesium tablet 400 mg PO DAILY multivitamin Tablet 1 tab PO DAILY acetaminophen 325 mg capsule 325 mg PO QID PRN gabapentin 300 mg capsule 300 mg PO DAILY oxycodone 5 mg tablet 5 mg PO Q6H PRN thiamine HCl (vitamin B1) 100 mg tablet 100 mg PO DAILY phenobarbital 64.8 mg tablet 64.8 mg PO DAILY Qty: 30 2RF Discharge Orders: Discharge ED (Routine); Ordered 11/09/24 Ordered By: Vani Matos Discharge Diet: As Directed Discharge Activity: Increase activity as tolerated Patient Instructions: Opioid Safety, Pain Management Activity Restrictions/Additional Instructions: Thank you for choosing [facility] for your healthcare needs today. Please realize this is an emergency room and that we are providing you with a medical screening exam and this may not be complete and all inclusive of all the testing and or work up that you may need to determine your ailment or severity of your illness. You have been screened and evaluated and felt safe for discharge. Health conditions do change or evolve sometimes and as such it is important that you follow up with your Primary Doctor to be re checked, 3-5 days is a general good time frame for follow up. You are always welcome to return to the ED for re assessment if your symptoms are worsening or you have new concerns Stand Alone Forms: Work/School Release Print Language: Upper Sorbian Coding Level of Care Code ED Protection Specialist for Kellen Rousseau
[2024-11-09 01:02] VITALS: BP 142/79; PULSE 127; O2SAT 96
[2024-11-09] MEDS: dexamethasone 10 mg/mL INJ IM (01:42)
[2024-11-09] MEDS: ketorolac 60 mg/2 mL INJ IM (01:46)
[2024-11-09 02:06] VITALS: BP 125/76; PULSE 95; O2SAT 95
--- NOTE | 2024-11-11 07:36 | DCPLANNER ---
messaged podiatry for er f/u
== END 2024-11-09 02:09 | disposition home or self-care (01) ==
PROVIDERS: Emergency Provider Emergency Medicine
DX: S93.401A Sprain of unspecified ligament of right ankle, initial encounter (principal); M79.671 Pain in right foot; F17.210 Nicotine dependence, cigarettes, uncomplicated; X58.XXXA Exposure to other specified factors, initial encounter; Y93.72 Activity, wrestling
CPT/HCPCS: 73610; 73630; 96372; 99284; J1100; J1885

== ENCOUNTER → 2024-11-25 08:17 | Outpatient (BNVA) | payer MEDICAID, SELFPAY | PROVIDERS: Visit Provider Podiatrist Foot & Ankle Surgery | DX: S82.831D Other fracture of upper and lower end of right fibula, subsequent encounter for closed fracture with routine healing (principal); L97.512 Non-pressure chronic ulcer of other part of right foot with fat layer exposed; X58.XXXD Exposure to other specified factors, subsequent encounter | CPT/HCPCS: 73610 ==

== ENCOUNTER 2024-12-30 15:24 | Emergency (ER) | payer MEDICAID, SELFPAY ==
[2024-12-30 15:36] VITALS: BP 128/83; PULSE 87; RESP 20; TEMP 36.7; O2SAT 98
--- NOTE | 2024-12-30 15:40 | XR_ITS ---
WS: [id number] Right ankle, 3 views, 12/30/2024 Clinical Data: pain Comparison: Right ankle, 11/25/2024 Findings: The fracture of the distal right fibula shows periosteal new bone formation. There is also periosteal new bone formation on the lateral aspect of the distal tibia which probably represents a syndesmotic rupture. XR/XR ankle RT min 3V* [id number] Impression: Healing fracture of distal right fibula.
--- NOTE | 2024-12-30 17:45 | W.ED.EXTPRO ---
HPI - Extremity Problem General: Chief complaint: Extremity Injury, Lower Stated complaint: R foot injury Time Seen by Provider: 12/30/24 16:57 History of Present Illness: 24-year-old male presents emergency room with complaint of right ankle pain. He twisted his ankle while at work inversion type injury when he stepped in a hole. He had previously broke the distal fibula. He is seeing podiatry for that has been healing well he is still able to bear weight without difficulty Related Data Home Medications ?Medication ?Instructions ?Recorded ?Confirmed acetaminophen 325 mg capsule 325 mg PO QID PRN 05/07/24 11/25/24 gabapentin 300 mg capsule 300 mg PO DAILY 05/07/24 11/25/24 magnesium oxide 400 mg PO DAILY 05/07/24 11/25/24 multivitamin 1 tab PO DAILY 05/07/24 11/25/24 oxycodone 5 mg tablet 5 mg PO Q6H PRN 05/07/24 11/25/24 thiamine HCl (vitamin B1) 100 mg 100 mg PO DAILY 05/07/24 11/25/24 tablet Previous Rx's ?Medication ?Instructions ?Recorded phenobarbital 64.8 mg tablet 64.8 mg PO DAILY #30 tabs 05/07/24 diclofenac sodium 50 mg 50 mg PO BID PRN pain #14 tabs 11/09/24 tablet,delayed release Cam boot to right #1 ea 11/12/24 mupirocin 2 % topical ointment 1 applic topical TID #15 grams 11/25/24 Allergies Allergy/AdvReac Type Severity Reaction Status Date / Time No Known Allergies Allergy Verified 11/25/24 08:15 Review of Systems Musc: Reports: joint pain [facility] ED PFSH: Medical History Seizures Alcoholism Acute alcoholic pancreatitis Pancreatitis Surgical History Status post cervical spinal fusion Social History Smoking and tobacco/nicotine status: current every day tobacco/nicotine user cigarettes Packs smoked per day: 0.5 Alcohol intake: current Substance/Drug Use: never Adopted: No service: No Current occupational exposures/hazards: Yes Physical Exam Extremity: OTHER: Examination of the right ankle. No evidence of significant swelling. Dorsum plantarflexion 5 of 5 no pain with palpation no deformity Course Vital Signs: Vital signs: Vital Signs Temperature 98.1 F 12/30/24 15:36 Pulse Rate 80 12/30/24 17:59 Respiratory Rate 20 H 12/30/24 15:36 Blood Pressure 132/82 12/30/24 17:59 Pulse Oximetry 97 12/30/24 17:59 Oxygen Delivery Me thod Room Air 12/30/24 15:36 MDM - Extremity (Nontraumatic) Medical Decision Making X-ray no acute fracture or signs of healing distal fibula fracture. Weightbearing as tolerated anti-inflammatories as needed ice and elevate follow-up with podiatry if not improving or has change of symptoms Lab Data Radiology Impressions Ankle X-Ray 12/30/24 15:40 Impression: Healing fracture of distal right fibula. All radiology interpretation(s) finalized by discharge Discharge Plan Discharge Patient Disposition: Home Clinical Impression: Ankle sprain and strain Condition: Stable Prescriptions: No Action magnesium oxide 400 mg magnesium tablet 400 mg PO DAILY multivitamin Tablet 1 tab PO DAILY acetaminophen 325 mg capsule 325 mg PO QID PRN gabapentin 300 mg capsule 300 mg PO DAILY oxycodone 5 mg tablet 5 mg PO Q6H PRN thiamine HCl (vitamin B1) 100 mg tablet 100 mg PO DAILY phenobarbital 64.8 mg tablet 64.8 mg PO DAILY Qty: 30 2RF (DME) Cam boot to right See Rx Instructions .Route .MEDSUPPLY Qty: 1 0RF Rx Instructions: As directed by HOME Length of need is at least 6 weeks mupirocin 2 % ointment 1 applic topical TID Qty: 15 0RF Rx Instructions: apply to wound TID and as needed with dressing changes, cover with band-aid diclofenac sodium 50 mg tablet,delayed release (DR/EC) 50 mg PO BID PRN (Reason: pain) Qty: 14 0RF Discharge Orders: Discharge ED (Routine); Ordered 12/30/24 Ordered By: Robe Rivera Discharge Diet: Usual diet Discharge Activity: Increase activity as tolerated Patient Instructions: Opioid Safety, Pain Management Activity Restrictions/Additional Instructions: Thank you for choosing [facility] for your healthcare needs today. It is very important that you follow up as instructed or that you return to the Emergency Department should you have concerns or if your condition changes or worsens in any way. You are seen in the emergency room with an ankle sprain. If symptoms do not continue to improve follow-up with district gauger who are seeing for the previous ankle fracture. Stand Alone Forms: Work/School Release Print Language: Amharic Coding Level of Care Code ED System Designer for Kellen Rousseau
[2024-12-30 17:59] VITALS: BP 132/82; PULSE 80; O2SAT 97
== END 2024-12-30 18:00 | disposition home or self-care (01) ==
PROVIDERS: Emergency Provider Family Medicine
DX: S93.401A Sprain of unspecified ligament of right ankle, initial encounter (principal); F17.210 Nicotine dependence, cigarettes, uncomplicated; X58.XXXA Exposure to other specified factors, initial encounter
CPT/HCPCS: 73610; 99283

== ENCOUNTER 2025-04-08 09:03 | Emergency (ER) | payer MEDICAID, SELFPAY ==
--- OUTSIDE RECORDS SUMMARY | 2012-03-13 09:45 | XMS_ITS | Continuity of Care Document ---
Author Organization [facility] Address [address] [place] [id number] Phone Care Team Providers Care Professor Of Music Name Role Phone Unavailable Unavailable Unavailable Procedures Procedure Date Sports Physicals No Charge Advance Directives Directive Yes / No Effective Date File Name No Information Encounters Encounter Description Practice Location Reason(s) For Visit Diagnoses Date Provider [facility], [address] [place] [address], [id number], tel:[phone] [facility] Other general medical examination for administrative purposes No Information Family History Family Member Type Diagnosis Age At Onset No Information Payers Payer name Insurance type Covered constitution party ID Authoriza tion(s) No Information Social History Type Description Quantity Date Captured Comments Sex Male Smoking Status No Information Vital Signs Date / Time: Height Weight BMI Pulse Rate Blood Pressure Temperature Respiratory Rate Body Surface Area Head Circumference Head Circ. Percentile Wt./Seun. Percentile BMI percentile Pulse Ox Inhaled Ox 2:24 PM 65.75 in 48.988 kg (108.00 lbs) 73 /min 118/74 mm[Hg] 98.20 F 16 /min 1.51 meter(2) Chief Complaint And Reason For Visit From encounter dated '03/13/2012 14:45'. sports physical (chief complaint) History Of Present Illness Encounter Date Complaint History Of Prese nt Illness No Information Instructions Date Instruction Additional Infor mation No Information Assessments Type Assessment Date No Information Mental Status Date Cognitive Assessment Orientation - Jewell ed to time, place, person, situation.
[2025-04-08 09:05] VITALS: BP 112/76; PULSE 112; RESP 16; TEMP 36.7; O2SAT 97; BMI 19.2
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
[2025-04-08 09:58] LABS: Hematocrit 40.2 % (37-53); Hemoglobin 14.00 g/dL (11.27-16.99); Mean Corpuscular HGB Conc 34.8 g/dL (30-55); Mean Corpuscular Hemoglobin 32.0 pg (27-33); Mean Corpuscular Volume 92.0 fl (82-101); Nucleated Red Blood Cells % 0 %; Platelet Count 200 10^3/cmm (157-399); Red Blood Count 4.37 10^6/uL (3.85-5.65); White Blood Count 7.80 10^3/uL (3.29-11.43)
[2025-04-08 10:21] LABS: Alanine Aminotransferase 28 U/L (0-41); Albumin Level 5.2 g/dL (3.5-5.2); Alkaline Phosphatase 71 U/L (40-130); Anion Gap 16.4 (5-19); Aspartate Amino Transferase 31 U/L (0-40); Blood Urea Nitrogen 12 mg/dL (6-20); Calcium 9.8 mg/dL (8.5-10.5); Carbon Dioxide 29 mmol/L (22-29); Chloride 97 mmol/L (98-107); Creatinine Clr Calc Pharmacy 153.8977; Globulin 3.5 g/dL (1.3-4.6); Glucose 124 mg/dL (65-115); Osmolality Calculated 289 mOsm/kg (285-295); Potassium 3.4 mmol/L (3.5-5.1); Sodium 139 mmol/L (136-145); Total Protein 8.7 g/dL (6.6-8.7)
[2025-04-08 10:25] VITALS: BP 110/73; PULSE 77; O2SAT 97
[2025-04-08 10:25] LABS: Alcohol Level 367 mg/dL (0-10)
--- NOTE | 2025-04-08 11:13 | PC.NURSE ---
upon entering room pt not responsive to verbal stimuli, this nurse had to perform sternal rub to wake patient; attempted to ambulate pt, pt was unable to walk without assistance, appears unstable in BLE. pt states he can walk on LLE but does feel like it is harder to walk on than right. pt states unable to get ride to [place] for follow up appt.
[2025-04-08 11:20] VITALS: BP 105/68; PULSE 74; RESP 15; O2SAT 100
--- NOTE | 2025-04-08 11:24 | PC.NURSE ---
this nurse spoke with [facility] staff, Tracy, per pt request to inform staff of situation.
--- NOTE | 2025-04-08 11:28 | PC.NURSE ---
pt pressed call-light, upon nurse entering room pt standing up at side of bed with both bed rails still up. pt standing without assistance, requesting to walk to bathroom. this nurse provided pt with urinal.
[2025-04-08 12:40] VITALS: PULSE 76; O2SAT 98
--- NOTE | 2025-04-08 13:05 | DCPLANNER ---
scheduled er f/u at [facility] for 04/11 @ 8774
--- NOTE | 2025-04-08 14:19 | PC.NURSE ---
pt was able to ambulate to bathroom with walker without nurse assist.
[2025-04-08 14:26] VITALS: BP 107/61; PULSE 88; O2SAT 97
== END 2025-04-08 14:35 | disposition home or self-care (01) ==
PROVIDERS: Emergency Provider Physician Assistant
DX: R53.1 Weakness (principal); F10.20 Alcohol dependence, uncomplicated; Y90.8 Blood alcohol level of 240 mg/100 ml or more; Z59.00 Homelessness unspecified
CPT/HCPCS: 70450; 72125; 80053; 80307; 85025; 96360; 99284; J7030

== ENCOUNTER → 2025-04-21 14:44 | Outpatient (BNVA) | payer MEDICAID, SELFPAY | PROVIDERS: Visit Provider Orthopaedic Surgery | DX: M54.2 Cervicalgia (principal) | CPT/HCPCS: 72040 ==